=== PATIENT | male | born 1950 | race Caucasian/White ===

== ENCOUNTER 2016-03-27 17:08 | Inpatient (IN) ==
[2016-03-27] MEDS ORDERED: TIROFIBAN 5,000 MCG/100 ML PREMIX IV SCH (17:34)
[2016-03-27 18:05] LABS: Basophils # 0.1 10*3/uL (0.0-0.2); Basophils % 0.8 % (0.0-0.8); Eosinophils # 0.2 10*3/uL (0.0-0.87); Eosinophils % 1.9 % (0.00-10.9); Hematocrit 35.1 VOL% (42.0-52.0); Hemoglobin 11.8 GM/DL (14.0-18.0); Immature Granulocytes % 0.3 %; Immature Granulocytes Absolute 0.04 #; Lymphocytes # 1.9 10*3/uL (1.4-4.0); Lymphocytes % 15.8 % (21.2-54.2); Mean Corpuscular HGB Conc 33.6 GM/DL (32-36); Mean Corpuscular Hemoglobin 31 PG (27-34); Mean Corpuscular Volume 91.2 FL (87-102); Mean Platelet Volume 11.1 FL (9.6-12.0); Monocytes # 0.9 10*3/uL (0.11-0.8); Monocytes % 7.4 % (1.7-12.7); Neutrophils # 8.7 10*3/uL (1.4-7.4); Neutrophils % 73.8 % (38.7-73.9); Platelet Count 191 10*3/uL (130-400); Red Blood Count 3.85 10*6/uL (3.8-5.5); White Blood Count 11.8 10*3/uL (4.5-13.71)
[2016-03-27 18:16] LABS: INR 1.1; PT Patient Result 11.2 SECS; Partial Thromboplastin Time 31.3 SECS (0-40)
[2016-03-27] MEDS ORDERED: ENOXAPARIN 60 MG/0.6 ML SYRINGE IV ONE (18:41)
[2016-03-27] MEDS ORDERED: MIDAZOLAM 2 MG/2 ML VIAL IV ONE (18:41)
[2016-03-27] MEDS ORDERED: LIDOCAINE 1% 20 ML VIAL MISC INJ ONE (18:41)
[2016-03-27] MEDS ORDERED: PRASUGREL 10 MG TABLET PO ONE (18:41)
[2016-03-27] MEDS ORDERED: ASPIRIN 325 MG TABLET PO ONE (18:41)
[2016-03-27] MEDS ORDERED: TIROFIBAN 5,000 MCG/100 ML PREMIX IV ONE (18:41)
[2016-03-27] MEDS ORDERED: HYDROmorphone 2 MG/1 ML VIAL IV ONE ×2 (18:41→21:34)
[2016-03-27] MEDS ORDERED: HEPARIN/NACL 0.9% 2 UNITS/ML 500 ML IV ONE (18:41)
[2016-03-27 18:44] LABS: CKMB % 4.5 %; Osmolality,Calculated 286.3 MOS/KG (273-304); Potassium 4.6 MMOL/L (3.5-5.1)
--- NOTE | 2016-03-27 18:45 | Cardiac Catheterization ---
Date of Procedure:: 03/27/16 Post-op diagnosis: same Procedure: Procedure performed: 1. Left heart catheterization 2. Coronary angiography 3. Left ventricular enlargement 4. Bypass graft evaluation of to 5. Temporary pacemaker placed in RV from right femoral vein access 6. Primary stenting of ostial vein graft in-stent occlusion with drug-eluting stent (4.0 x 20 Synergy) 7. Abdominal aortogram 8. Left femoral arteriotomy closures with Angio-Seal device Brief summary: Mr. ansari blindness 65-year-old CABG in 1999, ostial vein graft to RCA stenting April 2013, now with acute inferior myocardial infarction high-grade AV block intermittently. Description of procedure: The patient was transferred emergently to the [employer] directly from the ambulance and I placed a short sheath in the right femoral vein. Access the right femoral artery but could not advance the wire presumably due to PAD. Subsequent angiogram later showed that there was not significant PAD in the right system. I then placed a short 6 [place] sheath in the left femoral artery using a modified Seldinger technique, after The patient received IV sedation and local anesthetic. Next a multipurpose 1 guiding catheter was advancing engaged the right coronary vein graft which fit the vessel well. The patient was given an aspirin to chew up, as well as 0.5 milligrams per kilogram IV Lovenox on the table just prior to procedure. I advanced a balloon tipped guided temporary pacing wire into the RV apex without difficulty. Later was hooked up on the patient developed some dizziness and bradycardia. Capture was confirmed and the rate was set at 50. Aggrastat bolus and infusion were also started. A Prowater wire was advanced across the ostial stent occlusion with modest difficulty. Then advanced a 3.0 balloon and performed nominal pressure angioplasty which achieve KORY-3 flow. There was greater than 60% residual stenosis. The balloon was removed and a 4.0 x 20 Synergy stem was advanced across area of disease hanging 2-3 mm in the ostium of the aorta. He was deployed at just above nominal pressures. The stent was clearly not oversize and so I redilated to rated burst pressure. I advanced the balloon several millimeters to dilate the "overlap" segment with the previous stent had about 9-10 remigio. Finally I "flared" the ostial portion of the stent at above rated burst pressure. There was an excellent angiographic result. The patient's chest discomfort resolved after initial angioplasty. The guiding catheter was then removed, and a JL4 was engaged to the left coronary artery were angina was performed. This was then removed over a wire ( long exchange wire due to difficulty crossing the left iliac. A JR4 catheter was advancing engaged to the right coronary artery and goes performed. This was then removed over an exchange wire for a OSEGUERA catheter which was medically into the left subclavian and Androderm of the OSEGUERA graft was performed. This is removed over a wire. A bent pigtail catheter was advanced the left ventricle were hemodynamic measurements were taken left ventriculography was performed. This is then pulled of the abdominal aorta were abdominal aortogram was performed given suspicion of significant PAD, and previous record of AAA (3 cm?). This was then removed and a sheath of the antrum showed was inserted in the common femoral artery in a vessel suitable for closure. Hemostasis was obtained with Angio-Seal device with no residual bleeding. He is transferred to the ICU in good condition. Coronary angiography: Left main coronary artery has mild disease. Left anterior descending artery has diffuse severe proximal to mid disease of greater than 90% with competitive flow noted distally from the OSEGUERA graft. The circumflex is occluded proximally. The right coronary artery is occluded just after the takeoff of the acute marginal (high mid RCA occlusion) the OSEGUERA to LAD is widely patent with normal flow with a somewhat diminutive distal vessel which doesn't quite reach the apex. The vein graft to the RCA is occluded at the ostium at the site of the proximal portion of the previously placed stent. After opening occlusion the vein graft to the RCA fills the circumflex by right to left collaterals. Left ventriculography: The left ventricle is modestly enlarged with mildly reduced overall LV systolic function. There is a large area of moderate inferior hypokinesis. Overall ejection fraction estimated to be 40%. Abdominal aortogram: The abdominal aorta appears to be mild to moderately dilated with only mild disease diffusely in both iliac systems, with no significant disease to the knee bilaterally. Impression: 1. Mildly reduced LV systolic function with large area of moderate inferior hypokinesis; he has been ejection fraction is 40% overall 2. Right dominant system 3. Sinus bradycardia with intermittent high-grade AV block, with placement of temporary pacemaker from right femoral vein to right ventricular apex 4. Three-vessel CAD as described above including but not limited to: A. Diffuse greater than 95% proximal to mid LAD disease, with distal vessel filling by OSEGUERA to LAD graft B. Proximal circumflex occlusion, distal vasculature filling by the the vein graft to the RCA by right to left collaterals C. High mid RCA occlusion 5. Grafts: A. OSEGUERA to LAD is widely patent with normal flow B. Vein graft to RCA has proximal in-stent occlusion C. Other vein graft previously noted to be occluded. 6. Status post primary stenting of ostial vein graft to RCA with a 4.0 x 20 Synergy drug eluding stent dilated to rated burst pressure with excellent result and yarsani of KORY-3 flow Regulation discussion: I believe we achieved an excellent result regard to opening the in-stent occlusion of his proximal vein graft RCA which was filling his circumflex vessel by collaterals. He'll continue on Effient, and will finish a bag of Aggrastat while he is observed in the CCU. He'll get low-dose beta tayla as tolerated. I will start high-intensity statin therapy. Of note his previous stent was a 3.5 x 12 mm Al[place], and the stent did not quite cover the ostium. Of note the patient had a reasonable sized OM1 branch April 2013 which is now occluded. This is a potential target for intervention if appropriate. We will plan follow-up with Dr. Leo after discharge. Anesthesia: minimal conscious sedation Surgeon / Physician: Kamran Mcbride Flux Plant Operator: other Estimated blood loss: none Specimens: none sent Condition: stable Disposition: ICU/CCU Anesthesia: minimal conscious sedation Surgeon / Physician: Kamran Mcbride Flux Plant Operator: other Estimated blood loss: minimal Specimens: none sent Condition: stable Disposition: ICU/CCU - Medications / Follow-up
[2016-03-27] MEDS ORDERED: ONDANSETRON 4 MG/2 ML VIAL ONE (18:48)
--- NOTE | 2016-03-27 18:48 | Cardiology History & Physical ---
Assessment and Plan (1) Insulin dependent diabetes mellitus Status: Chronic Assessment and plan: 1. 65-year-old obese WM former smoker with reported IDDM, hypertension, dyslipidemia, CAD status post CABG in 1999, status post stenting of proximal vein graft RCA April 2013, status post cholecystectomy and ERCP 3 weeks ago, who now presents with throat discomfort starting about 1030 a.m., and eventual brief syncope versus presyncope, diagnosed by EMS with acute inferior [place] 2. Sinus bradycardia with intermediate and high-grade AV block noted on initial tracings 3. Taken urgently to the radiographer cardiac catheterization for coronary angiography and intervention 4. Follow Dr. Leo, but has not seen him in over 6 months Addendum: I primarily stented his occluded stent at the ostium of his vein graft RCA successfully and placed temporary pacemaker in his RV. See report. Current Visit: No (2) Hx of CABG Status: Chronic Current Visit: No (3) Hypertension Status: Chronic Current Visit: No (4) CAD (coronary artery disease) Status: Chronic Current Visit: No (5) AVB (atrioventricular block) Status: Acute Current Visit: No History of Present Illness Chief complaint: cp History of present illness: Note: This H&P was initially entered under the wrong admission (foreign late January). Please see that note for further details. I will under the assessment and plan. Home Medications Medication Instructions Recorded Confirmed Type Aspirin [Ecotrin] 81 mg PO DAILY 02/22/16 02/22/16 History Carvedilol [Coreg] 3.125 mg PO BID 02/22/16 02/22/16 History Cyanocobalamin Tab [Vitamin B12 1,000 mcg PO DAILY 02/22/16 02/22/16 History Tab] Hum Insulin NPH/Reg Insulin Hm 52 unit SUBCUT QPM 02/22/16 02/22/16 History [NovoLIN 70/30] Hum Insulin NPH/Reg Insulin Hm 90 unit SUBCUT QAM 02/22/16 02/22/16 History [NovoLIN 70/30] Lisinopril/Hydrochlorothiazide 1 each PO DAILY 02/22/16 02/22/16 History [Lisinopril-Hctz 10-12.5 mg Tab] Magnesium Oxide 420 mg PO DAILY 02/22/16 02/22/16 History Montelukast Tab [Singulair Tab] 10 mg PO DAILY 02/22/16 02/22/16 History Omeprazole [Prilosec] 20 mg PO DAILY 02/22/16 02/22/16 History Pravastatin [Pravachol] 80 mg PO DAILY 02/22/16 02/22/16 History Probenecid [Benemid] 500 mg PO BID 02/22/16 02/22/16 History Acetaminophen Tab [Tylenol Tab] 325 mg PO Q4H PRN #0 tablet 02/28/16 Rx Alum/Mag/Simeth Max Str Liquid 30 ml PO Q6H PRN #0 udcup 02/28/16 Rx [Mylanta Max Strength Liquid] Carvedilol [Coreg] 3.125 mg PO BID tablet 02/28/16 Rx HYDROcodone/ACETAMIN 7.5-325 1 tablet PO Q4H PRN #40 tablet 02/28/16 Rx [[place] 7.5-325] Allergies Allergy/AdvReac Type Severity Reaction Status Date / Time levofloxacin [From Levaquin] AdvReac RASH Verified 02/23/16 17:22 Medical,Surgical,& Family Hx - Medical History Cardio: History of: CAD, Hypertension, [place] Neurology: History of: Migraine HEENT: History of: Ear Problem Endocrine: History of: Diabetes Mellitus (IDDM), Diabetes Mellitus (NIDDM) Rheumatology: History of;: Gout Respiratory: History of: Obstructive Sleep Apnea, Respiratory Problems (CHRONIC SOB ON EXERTION) Gastrointestinal: History of: GERD Musculoskeletal: History of: Back/Neck Problems - Surgical History Cardiac Surgeries: Sugical HX of: Cardiac Catheterization (WITH STENTS), Cardiac Surgery (CABG) Reproductive Surgeries: Surgical HX of;: Vasectomy - Family History Family History: Reports;: Family Diabetes, Family Heart Disease - Social History Smoking Status: Former smoker Cardiology Physical Exam - Constitutional Vitals: Intake and Output 03/27/16 03/27/16 03/27/16 07:59 15:59 23:59 Other: Weight 136.078 kg Patient Weight 03/27/16 23:59 Weight 136.078 kg General appearance: severe distress, over weight - Head Head exam: Present: normal inspection, atraumatic - Cardiovascular Cardiovascular exam: Present: bradycardia - Extremities Exam Extremities exam: Absent: edema Result/EKG - Labs CBC & BMP: 03/27/16 17:57 Labs: Laboratory Results - last 24 hr 03/27/16 03/27/16 17:57 17:57 WBC 11.8 RBC 3.85 Hgb 11.8 L Hct 35.1 L MCV 91.2 MCH 31 MCHC 33.6 RDW 14.0 Plt Count 191 MPV 11.1 Neut % (Auto) 73.8 Lymph % (Auto) 15.8 L [place] % (Auto) 7.4 Eos % (Auto) 1.9 Baso % (Auto) 0.8 Neut # (Auto) 8.7 H Lymph # (Auto) 1.9 [place] # (Auto) 0.9 H Eos # (Auto) 0.2 Baso # (Auto) 0.1 Immature Gran % 0.3 Nucleated RBC % 0.0 Immature Gran # 0.04 Nucleated RBCs # 0.00 INR 1.1 PT Patient/Control Mix 11.2 Circ Anticoag PTT 31.3
[2016-03-27 19:06] LABS: Troponin I Only 3.93 NG/ML (0.00-0.045)
[2016-03-27] MEDS ORDERED: ZALEPLON 5 MG CAPSULE PO PRN (20:39)
[2016-03-27] MEDS ORDERED: GLUCAGON 1 MG VIAL IM PRN (20:39)
[2016-03-27] MEDS ORDERED: DEXTROSE 50% 25 GM/50 ML VIAL IV PRN (20:39)
[2016-03-27] MEDS ORDERED: ONDANSETRON 4 MG/2 ML VIAL IV PRN (20:39)
[2016-03-27] MEDS ORDERED: SODIUM CHLORIDE 0.45% 1,000 ML IV SCH (21:00)
[2016-03-27] MEDS: PROMETHAZINE INJ 12.5 MG in SODIUM CHLORIDE 0.9% 50 ML IV PRN (21:30)
[2016-03-27] MEDS: CARVEDILOL 3.125 MG TABLET PO SCH (21:53)
[2016-03-27] MEDS: ATORVASTATIN 80 MG TABLET PO SCH (21:53)
[2016-03-27] MEDS: INSULIN REGULAR 100 UNIT/ML SUBCUT SCH (21:54)
[2016-03-27 23:54] LABS: CKMB % 9.1 %
[2016-03-27 23:55] LABS: Troponin I Only 48.7 NG/ML (0.00-0.045)
[2016-03-28] MEDS: PROMETHAZINE INJ 12.5 MG in SODIUM CHLORIDE 0.9% 50 ML IV PRN (04:30)
[2016-03-28 06:52] LABS: Basophils # 0.1 10*3/uL (0.0-0.2); Basophils % 0.5 % (0.0-0.8); Eosinophils % 0.1 % (0.00-10.9); Hematocrit 39.7 VOL% (42.0-52.0); Hemoglobin 12.9 GM/DL (14.0-18.0); Immature Granulocytes % 0.5 %; Immature Granulocytes Absolute 0.06 #; Lymphocytes # 1.2 10*3/uL (1.4-4.0); Lymphocytes % 10.5 % (21.2-54.2); Mean Corpuscular HGB Conc 32.5 GM/DL (32-36); Mean Corpuscular Hemoglobin 30 PG (27-34); Mean Corpuscular Volume 93.2 FL (87-102); Mean Platelet Volume 10.5 FL (9.6-12.0); Monocytes # 0.9 10*3/uL (0.11-0.8); Monocytes % 7.2 % (1.7-12.7); Neutrophils # 9.5 10*3/uL (1.4-7.4); Neutrophils % 81.2 % (38.7-73.9); Platelet Count 183 10*3/uL (130-400); Red Blood Count 4.26 10*6/uL (3.8-5.5); Red Cell Distribution Width 14.5 % (9.3-17.3); White Blood Count 11.7 10*3/uL (4.5-13.71)
[2016-03-28 07:38] LABS: Calcium 8.3 MG/DL (8.5-10.1); Osmolality,Calculated 289.1 MOS/KG (273-304); Potassium 4.9 MMOL/L (3.5-5.1)
[2016-03-28 07:40] LABS: Troponin I Only 96.8 NG/ML (0.00-0.045)
--- NOTE | 2016-03-28 08:12 | EKG Report ---
Stationary ECG Study [facility] Test Date: 03/28/2016 8:09:53 AM Pat Name: KARINA MARS Department: Room: 124 Gender: M Financial Associate: MIGUEL : 1950 Requested by: Kamran Trevizo Order Number: [id number] Sukhdev MD: CRYSTAL MOROCHO Intervals [place] Rate: 60 P: 27 GA: 241 QRS: 24 QRSD: 99 T: 38 QT: 405 QTc: 407 Interpretive Statements SINUS RHYTHM WITH PROLONGED GA INTERVAL INFERIOR MYOCARDIAL INFARCTION POSSIBLE ACUTE LOW VOLTAGE TRACING Electronically Signed On 03-29-16 11:13:39 OBSTETRICS GYN by CRYSTAL MOROCHO [id number]
[2016-03-28] MEDS: PANTOPRAZOLE 40 MG TABLET PO SCH ×3 (08:14→21:22)
[2016-03-28] MEDS ORDERED: ALUMINUM/MAGNES/SIMETH MAX STR 30 ML UDCUP PO PRN (08:19)
--- NOTE | 2016-03-28 08:37 | Cardiology Progress Note ---
Assessment and Plan (1) Insulin dependent diabetes mellitus Status: Chronic Assessment and plan: 1. 65-year-old obese WM former smoker with reported IDDM, hypertension, dyslipidemia, CAD status post CABG in 1999, status post stenting of proximal vein graft RCA April 2013, status post cholecystectomy and ERCP 3 weeks ago, who now presents with throat discomfort starting about 1030 a.m., and eventual brief syncope versus presyncope, diagnosed by EMS with acute inferior [place] 2. Sinus bradycardia with intermediate and high-grade AV block noted on initial tracings 3. Taken urgently to the forestry laborer for coronary angiography and intervention 4. Follow Dr. Leo, but has not seen him in over 6 months Addendum: I primarily stented his occluded stent at the ostium of his vein graft RCA successfully and placed temporary pacemaker in his RV. See report. March 28 update: 1. Mr. Abdul is doing well status post inferior FL with stenting of vein graft to RCA, which also supplied the circumflex system through right to left collaterals 2. He appeared to have normal ejection fraction April 2013, at catheterization when his vein graft was first stented, now has EF approximate 40 % with significant inferior hypokinesis 3. I pulled his temporary right ventricle pacemaker (from right venous sheath) , as he has had no further AV block or significant bradycardia 4. Tolerating low-dose Coreg/beta tayla 5. Add low-dose NOLVIA inhibitor 6. Plan to transfer to the telemetry floor at midday if he has no further problems; he can ambulate, but need to avoid falls 7. We need to obtain accurate home medicine list, will give sliding scale insulin for the time being (IDDM) 8. LEÓN; will try to get his CPAP set up to use in the hospital 9. Recommend cardiac rehabilitation after discharge 10. Resolved headache and nausea which were fairly significant yesterday evening late 11. Both groin access sites without bleeding or hematoma 12. Reports she's having his usual GERD; given Maalox times one and continue Protonix 13 appears he is probably on pravastatin to home, would probably benefit from a higher intensity statin such as Lipitor Current Visit: No (2) Hx of CABG Status: Chronic Current Visit: No (3) Hypertension Status: Chronic Current Visit: No (4) CAD (coronary artery disease) Status: Chronic Current Visit: No (5) AVB (atrioventricular block) Status: Acute Current Visit: No Cardiology - PN: Subj Interval history: Mr. Abdul has had no more chest discomfort and denies shortness of breath. He complains of some acid reflux which is common for him "maintaining its messed up ". He has had no dysrhythmia during the night. He's had no complications at his access sites. He does not have abdominal discomfort. His headache which she had yesterday evening has resolved. He had nausea during the night which is now significantly better. Exam (Progress Note) - Constitutional Vitals: Period Temp Pulse Resp BP Sys/Islas Pulse Ox Last 24 Hr 96.3 F-97.2 F 57-78 11-20 109-175/68-114 91-99 General appearance: no acute distress, over weight - Head Head exam: Present: normal inspection, normocephalic, atraumatic - Neck Neck exam: Present: normal inspection - Respiratory Respiratory exam: Present: clear to auscultation bilaterally. Absent: stridor, wheezes - Cardiovascular Cardiovascular exam: Present: regular rate and rhythm. Absent: diastolic murmur , rubs - GI/Abdominal GI/Abdominal exam: Present: soft. Absent: tenderness - Extremities Exam Extremities exam: Present: other (no bruit, bleeding, or hematoma is right or left access sites ). Absent: edema Result/EKG - Labs CBC & BMP: 03/28/16 06:44 03/28/16 06:44 Labs: Laboratory Results - last 24 hr 03/27/16 03/27/16 03/27/16 17:57 17:57 17:57 WBC 11.8 RBC 3.85 Hgb 11.8 L Hct 35.1 L MCV 91.2 MCH 31 MCHC 33.6 RDW 14.0 Plt Count 191 MPV 11.1 Neut % (Auto) 73.8 Lymph % (Auto) 15.8 L [place] % (Auto) 7.4 Eos % (Auto) 1.9 Baso % (Auto) 0.8 Neut # (Auto) 8.7 H Lymph # (Auto) 1.9 [place] # (Auto) 0.9 H Eos # (Auto) 0.2 Baso # (Auto) 0.1 Immature Gran % 0.3 Nucleated RBC % 0.0 Immature Gran # 0.04 Nucleated RBCs # 0.00 INR 1.1 PT Patient/Control Mix 11.2 Circ Anticoag PTT 31.3 Sodium 141 Potassium 4.6 Chloride 109 H Carbon Dioxide 24 Anion Gap 12.6 BUN 28 H Creatinine 1.50 H GFR Calculation 66 BUN/Creatinine Ratio 18.00 Glucose 103 POC Glucose Calculated Osmolality 286.3 Calcium 8.0 L Total Creatine Kinase 470 H CK-MB (CK-2) 21.3 H CK and CKMB Interp 4.5 Troponin I 3.930 H 03/27/16 03/27/16 03/28/16 21:50 22:03 06:44 WBC 11.7 RBC 4.26 Hgb 12.9 L Hct 39.7 L MCV 93.2 MCH 30 MCHC 32.5 RDW 14.5 Plt Count 183 MPV 10.5 Neut % (Auto) 81.2 H Lymph % (Auto) 10.5 L [place] % (Auto) 7.2 Eos % (Auto) 0.1 Baso % (Auto) 0.5 Neut # (Auto) 9.5 H Lymph # (Auto) 1.2 L [place] # (Auto) 0.9 H Eos # (Auto) 0.0 Baso # (Auto) 0.1 Immature Gran % 0.5 Nucleated RBC % 0.0 Immature Gran # 0.06 Nucleated RBCs # 0.00 INR PT Patient/Control Mix Circ Anticoag PTT Sodium Potassium Chloride Carbon Dioxide Anion Gap BUN Creatinine GFR Calculation BUN/Creatinine Ratio Glucose POC Glucose 126 H Calculated Osmolality Calcium Total Creatine Kinase 1666 H D CK-MB (CK-2) 150.9 H D CK and CKMB Interp 9.1 Troponin I 48.700 H D 03/28/16 03/28/16 06:44 07:17 WBC RBC Hgb Hct MCV MCH MCHC RDW Plt Count MPV Neut % (Auto) Lymph % (Auto) [place] % (Auto) Eos % (Auto) Baso % (Auto) Neut # (Auto) Lymph # (Auto) [place] # (Auto) Eos # (Auto) Baso # (Auto) Immature Gran % Nucleated RBC % Immature Gran # Nucleated RBCs # INR PT Patient/Control Mix Circ Anticoag PTT Sodium 142 Potassium 4.9 Chloride 108 H Carbon Dioxide 26 Anion Gap 12.9 BUN 27 H Creatinine 1.40 H GFR Calculation 72 BUN/Creatinine Ratio 19.00 Glucose 139 H POC Glucose 148 H Calculated Osmolality 289.1 Calcium 8.3 L Total Creatine Kinase 2066 H D CK-MB (CK-2) 206.6 H D CK and CKMB Interp 10.0 Troponin I 96.800 H D Specialty Discharge - Follow Up or Referrals - Discharge Medications No Action Lisinopril/Hydrochlorothiazide [Lisinopril-Hctz 10-12.5 mg Tab] 1 each PO DAILY Probenecid [Benemid] 500 mg PO BID Omeprazole [Prilosec] 20 mg PO DAILY Montelukast Tab [Singulair Tab] 10 mg PO DAILY Cyanocobalamin Tab [Vitamin B12 Tab] 1,000 mcg PO DAILY Pravastatin [Pravachol] 80 mg PO DAILY Hum Insulin NPH/Reg Insulin Hm [NovoLIN 70/30] 90 unit SUBCUT QAM Hum Insulin NPH/Reg Insulin Hm [NovoLIN 70/30] 52 unit SUBCUT QPM Aspirin [Ecotrin] 81 mg PO DAILY Magnesium Oxide 420 mg PO DAILY Acetaminophen Tab [Tylenol Tab] 325 mg PO Q4H PRN #0 tablet PRN Reason: fever, headache/body aches Alum/Mag/Simeth Max Str Liquid [Mylanta Max Strength Liquid] 30 ml PO Q6H PRN #0 udcup PRN Reason: Dyspepsia Carvedilol [Coreg] 3.125 mg PO BID tablet HYDROcodone/ACETAMIN 7.5-325 [[place] 7.5-325] 1 tablet PO Q4H PRN #40 tablet PRN Reason: Pain Moderate (4-7)
[2016-03-28] MEDS: INSULIN REGULAR 100 UNIT/ML SUBCUT SCH ×4 (09:44→21:22)
[2016-03-28] MEDS: INSULIN NPH/REGULAR 70/30 100 UNIT/ML SUBCUT SCH ×2 (09:50→18:03)
[2016-03-28] MEDS: ACETAMINOPHEN 325 MG TABLET PO PRN ×3 (09:51→21:22)
[2016-03-28] MEDS: CARVEDILOL 3.125 MG TABLET PO SCH ×2 (09:52→21:22)
[2016-03-28] MEDS: PRASUGREL 10 MG TABLET PO SCH (09:52)
[2016-03-28] MEDS: ASPIRIN EC 81 MG TABLET PO SCH (09:52)
[2016-03-28] MEDS: LISINOPRIL 5 MG TABLET PO SCH ×2 (09:52→21:22)
[2016-03-28] MEDS: ATORVASTATIN 80 MG TABLET PO SCH (21:22)
[2016-03-29 05:48] LABS: Basophils # 0.1 10*3/uL (0.0-0.2); Basophils % 0.7 % (0.0-0.8); Eosinophils # 0.3 10*3/uL (0.0-0.87); Eosinophils % 2.9 % (0.00-10.9); Hemoglobin 12.2 GM/DL (14.0-18.0); Immature Granulocytes % 0.4 %; Immature Granulocytes Absolute 0.04 #; Lymphocytes # 1.7 10*3/uL (1.4-4.0); Lymphocytes % 16.1 % (21.2-54.2); Mean Corpuscular HGB Conc 32.1 GM/DL (32-36); Mean Corpuscular Hemoglobin 30 PG (27-34); Mean Corpuscular Volume 92.2 FL (87-102); Mean Platelet Volume 11.2 FL (9.6-12.0); Monocytes # 0.9 10*3/uL (0.11-0.8); Monocytes % 8.8 % (1.7-12.7); Neutrophils # 7.6 10*3/uL (1.4-7.4); Neutrophils % 71.1 % (38.7-73.9); Platelet Count 176 10*3/uL (130-400); Red Blood Count 4.12 10*6/uL (3.8-5.5); Red Cell Distribution Width 14.3 % (9.3-17.3); White Blood Count 10.7 10*3/uL (4.5-13.71)
[2016-03-29 06:44] LABS: Calcium 8.4 MG/DL (8.5-10.1); Magnesium 2.1 MG/DL (1.8-2.4); Osmolality,Calculated 290.7 MOS/KG (273-304); Potassium 4.1 MMOL/L (3.5-5.1)
--- NOTE | 2016-03-29 08:30 | EKG Report ---
Stationary ECG Study [facility] Test Date: 03/29/2016 8:28:09 AM Pat Name: KARINA MARS Department: Room: 265 Gender: M Building Drafting Officer: ROXANNE : 1950 Requested by: Kamran Trevizo Order Number: [id number] Sukhdev MD: CRYSTAL MOROCHO Intervals [place] Rate: 67 P: 81 AL: 236 QRS: -16 QRSD: 104 T: -58 QT: 410 QTc: 426 Interpretive Statements SINUS RHYTHM WITH PROLONGED AL INTERVAL INFERIOR MYOCARDIAL INFARCTION, RECENT Electronically Signed On 03-29-16 11:32:32 COLLECTIONS AND ARCHIVES DIRECTOR by CRYSTAL MOROCHO [id number]
[2016-03-29] MEDS: INSULIN REGULAR 100 UNIT/ML SUBCUT SCH ×4 (08:36→21:06)
[2016-03-29] MEDS: ASPIRIN EC 81 MG TABLET PO SCH (08:36)
[2016-03-29] MEDS: INSULIN NPH/REGULAR 70/30 100 UNIT/ML SUBCUT SCH ×2 (08:36→18:16)
[2016-03-29] MEDS: CARVEDILOL 3.125 MG TABLET PO SCH ×2 (08:37→21:05)
[2016-03-29] MEDS: PRASUGREL 10 MG TABLET PO SCH (08:37)
[2016-03-29] MEDS: PANTOPRAZOLE 40 MG TABLET PO SCH ×4 (08:37→21:06)
[2016-03-29] MEDS: LISINOPRIL 5 MG TABLET PO SCH ×2 (08:37→21:05)
--- NOTE | 2016-03-29 09:55 | Cardiology Progress Note ---
Assessment and Plan (1) Insulin dependent diabetes mellitus Status: Chronic Assessment and plan: 1. 65-year-old obese WM former smoker with reported IDDM, hypertension, dyslipidemia, CAD status post CABG in 1999, status post stenting of proximal vein graft RCA April 2013, status post cholecystectomy and ERCP 3 weeks ago, who now presents with throat discomfort starting about 1030 a.m., and eventual brief syncope versus presyncope, diagnosed by EMS with acute inferior [place] 2. Sinus bradycardia with intermediate and high-grade AV block noted on initial tracings 3. Taken urgently to the hoisting laborer for coronary angiography and intervention 4. Follow Dr. Leo, but has not seen him in over 6 months Addendum: I primarily stented his occluded stent at the ostium of his vein graft RCA successfully and placed temporary pacemaker in his RV. See report. March 28 update: 1. Mr. Abdul is doing well status post inferior DC with stenting of vein graft to RCA, which also supplied the circumflex system through right to left collaterals 2. He appeared to have normal ejection fraction April 2013, at catheterization when his vein graft was first stented, now has EF approximate 40 % with significant inferior hypokinesis 3. I pulled his temporary right ventricle pacemaker (from right venous sheath) , as he has had no further AV block or significant bradycardia 4. Tolerating low-dose Coreg/beta tayla 5. Add low-dose NOLVIA inhibitor 6. Plan to transfer to the telemetry floor at midday if he has no further problems; he can ambulate, but need to avoid falls 7. We need to obtain accurate home medicine list, will give sliding scale insulin for the time being (IDDM) 8. LEÓN; will try to get his CPAP set up to use in the hospital 9. Recommend cardiac rehabilitation after discharge 10. Resolved headache and nausea which were fairly significant yesterday evening late 11. Both groin access sites without bleeding or hematoma 12. Reports she's having his usual GERD; given Maalox times one and continue Protonix 13 appears he is probably on pravastatin to home, would probably benefit from a higher intensity statin such as Lipitor March 29 update: 1. Slowly improving clinically now ambulating in the room; recommend the ambulate in the hallway, but to avoid falls with assistance of needed 2. Status post inferior [place] with restenting of vein graft RCA with good result 3. Using CPAP in the hospital now 4. Headache and nausea did not returned 5. GERD is now controlled on twice a day PPI 6. LV function is now mildly reduced status post DC with inferior hypokinesis; as spironolactone 25 mg per day to his low-dose Coreg and NOLVIA inhibitor 7. No return of significant bradycardia or high-grade block since coronary intervention 8. Likely can be discharged the next day or 2; he follows up with Dr. Willam Leo Current Visit: No (2) Hx of CABG Status: Chronic Current Visit: No (3) Hypertension Status: Chronic Current Visit: No (4) CAD (coronary artery disease) Status: Chronic Current Visit: No (5) AVB (atrioventricular block) Status: Acute Current Visit: No Cardiology - PN: Subj Interval history: Mr. Grant Chou is getting up some in the room but still feels fairly weak. He is not had presyncope syncope or palpitations. He does have a little dyspnea on exertion. He has mild soreness at his access site in his groin. Exam (Progress Note) - Constitutional Vitals: Period Temp Pulse Resp BP Sys/Islas Pulse Ox Last 24 Hr 96.8 F-98.6 F 57-86 16-20 111-146/57-86 94-99 General appearance: no acute distress, over weight - Head Head exam: Present: normal inspection, normocephalic, atraumatic - Neck Neck exam: Present: normal inspection - Respiratory Respiratory exam: Present: rales. Absent: rhonchi, stridor, wheezes - Cardiovascular Cardiovascular exam: Present: regular rate and rhythm. Absent: diastolic murmur , rubs - GI/Abdominal GI/Abdominal exam: Present: soft. Absent: tenderness - Extremities Exam Extremities exam: Present: edema (minimal), other (bilateral groin access sites without bruit hematoma or bleeding; there is some modest ecchymosis on the right ) - Neurological Exam Neurological exam: Present: alert, oriented X3 Result/EKG - Labs CBC & BMP: 03/29/16 04:41 03/29/16 04:41 Labs: Laboratory Results - last 24 hr 03/28/16 03/28/16 03/28/16 11:03 16:26 21:26 WBC RBC Hgb Hct MCV MCH MCHC RDW Plt Count MPV Neut % (Auto) Lymph % (Auto) [place] % (Auto) Eos % (Auto) Baso % (Auto) Neut # (Auto) Lymph # (Auto) [place] # (Auto) Eos # (Auto) Baso # (Auto) Immature Gran % Nucleated RBC % Immature Gran # Nucleated RBCs # Sodium Potassium Chloride Carbon Dioxide Anion Gap BUN Creatinine GFR Calculation BUN/Creatinine Ratio Glucose POC Glucose 180 H 138 H 140 H Calculated Osmolality Calcium Magnesium 03/29/16 03/29/16 03/29/16 04:41 04:41 07:52 WBC 10.7 RBC 4.12 Hgb 12.2 L Hct 38.0 L MCV 92.2 MCH 30 MCHC 32.1 RDW 14.3 Plt Count 176 MPV 11.2 Neut % (Auto) 71.1 Lymph % (Auto) 16.1 L [place] % (Auto) 8.8 Eos % (Auto) 2.9 Baso % (Auto) 0.7 Neut # (Auto) 7.6 H Lymph # (Auto) 1.7 [place] # (Auto) 0.9 H Eos # (Auto) 0.3 Baso # (Auto) 0.1 Immature Gran % 0.4 Nucleated RBC % 0.0 Immature Gran # 0.04 Nucleated RBCs # 0.00 Sodium 145 Potassium 4.1 Chloride 109 H Carbon Dioxide 25 Anion Gap 15.1 H BUN 26 H Creatinine 1.30 GFR Calculation 78 BUN/Creatinine Ratio 20.00 Glucose 57 L POC Glucose 68 L Calculated Osmolality 290.7 Calcium 8.4 L Magnesium 2.1 Specialty Discharge - Follow Up or Referrals Follow up with: Lucien Leo MD [Physician] - 1 Week (1-2 weeks with CMP, CBC, EKG) - Discharge Medications No Action Lisinopril/Hydrochlorothiazide [Lisinopril-Hctz 10-12.5 mg Tab] 1 each PO DAILY Probenecid [Benemid] 500 mg PO BID Omeprazole [Prilosec] 20 mg PO BID Montelukast Tab [Singulair Tab] 10 mg PO DAILY Cyanocobalamin Tab [Vitamin B12 Tab] 1,000 mcg PO DAILY Pravastatin [Pravachol] 80 mg PO DAILY Hum Insulin NPH/Reg Insulin Hm [NovoLIN 70/30] 90 unit SUBCUT QAM Hum Insulin NPH/Reg Insulin Hm [NovoLIN 70/30] 52 unit SUBCUT QPM Aspirin [Ecotrin] 81 mg PO DAILY Magnesium Oxide 420 mg PO DAILY Acetaminophen Tab [Tylenol Tab] 325 mg PO Q4H PRN #0 tablet PRN Reason: fever, headache/body aches Alum/Mag/Simeth Max Str Liquid [Mylanta Max Strength Liquid] 30 ml PO Q6H PRN #0 udcup PRN Reason: Dyspepsia Carvedilol [Coreg] 3.125 mg PO BID tablet HYDROcodone/ACETAMIN 7.5-325 [[place] 7.5-325] 1 tablet PO Q4H PRN #40 tablet PRN Reason: Pain Moderate (4-7)
[2016-03-29] MEDS: SPIRONOLACTONE 25 MG TABLET PO SCH (10:16)
[2016-03-29] MEDS: ACETAMINOPHEN 325 MG TABLET PO PRN (14:44)
[2016-03-29] MEDS: ATORVASTATIN 80 MG TABLET PO SCH (21:06)
[2016-03-30] MEDS: PANTOPRAZOLE 40 MG TABLET PO SCH ×2 (07:35→09:00)
[2016-03-30] MEDS: INSULIN REGULAR 100 UNIT/ML SUBCUT SCH ×2 (08:10→12:25)
[2016-03-30] MEDS: INSULIN NPH/REGULAR 70/30 100 UNIT/ML SUBCUT SCH (08:58)
[2016-03-30] MEDS: SPIRONOLACTONE 25 MG TABLET PO SCH (08:59)
[2016-03-30] MEDS: ASPIRIN EC 81 MG TABLET PO SCH (08:59)
[2016-03-30] MEDS: CARVEDILOL 3.125 MG TABLET PO SCH (08:59)
[2016-03-30] MEDS: PRASUGREL 10 MG TABLET PO SCH (09:00)
[2016-03-30] MEDS: LISINOPRIL 5 MG TABLET PO SCH (09:00)
[2016-03-30 09:19] LABS: Basophils # 0.1 10*3/uL (0.0-0.2); Basophils % 0.7 % (0.0-0.8); Eosinophils # 0.5 10*3/uL (0.0-0.87); Eosinophils % 5.5 % (0.00-10.9); Hematocrit 36.4 VOL% (42.0-52.0); Immature Granulocytes % 0.2 %; Immature Granulocytes Absolute 0.02 #; Lymphocytes # 1.3 10*3/uL (1.4-4.0); Lymphocytes % 15.5 % (21.2-54.2); Mean Corpuscular Hemoglobin 30 PG (27-34); Mean Corpuscular Volume 89.9 FL (87-102); Mean Platelet Volume 10.6 FL (9.6-12.0); Monocytes # 0.8 10*3/uL (0.11-0.8); Monocytes % 9.4 % (1.7-12.7); Neutrophils # 5.8 10*3/uL (1.4-7.4); Neutrophils % 68.7 % (38.7-73.9); Platelet Count 167 10*3/uL (130-400); Red Blood Count 4.05 10*6/uL (3.8-5.5); Red Cell Distribution Width 13.7 % (9.3-17.3); White Blood Count 8.5 10*3/uL (4.5-13.71)
[2016-03-30 09:47] LABS: Calcium 8.2 MG/DL (8.5-10.1); Magnesium 1.8 MG/DL (1.8-2.4); Osmolality,Calculated 285.4 MOS/KG (273-304); Potassium 4.2 MMOL/L (3.5-5.1)
--- NOTE | 2016-03-30 09:56 | Discharge Summary ---
<Kristy Floyd E - Last Filed: 03/30/16 09:42> Hospital Course - Hospital Course Hospital Course: Hospital course: ADMISSION INFORMATION: 1. 65-year-old obese WM former smoker with reported IDDM, hypertension, dyslipidemia, CAD status post CABG in 1999, status post stenting of proximal vein graft RCA April 2013, status post cholecystectomy and ERCP 3 weeks ago, who now presents with throat discomfort starting about 1030 a.m., and eventual brief syncope versus presyncope, diagnosed by EMS with acute inferior [place] 2. Sinus bradycardia with intermediate and high-grade AV block noted on initial tracings 3. Taken urgently to the union laborer for coronary angiography and intervention 4. Follow Dr. Leo, but has not seen him in over 6 months Addendum: I primarily stented his occluded stent at the ostium of his vein graft RCA successfully and placed temporary pacemaker in his RV. See report. March 28, 2016 update: 1. Mr. Abdul is doing well status post inferior [place] with stenting of vein graft to RCA, which also supplied the circumflex system through right to left collaterals 2. He appeared to have normal ejection fraction April 2013, at catheterization when his vein graft was first stented, now has EF approximate 40 % with significant inferior hypokinesis 3. I pulled his temporary right ventricle pacemaker (from right venous sheath) , as he has had no further AV block or significant bradycardia 4. Tolerating low-dose Coreg/beta tayla 5. Add low-dose NOLVIA inhibitor 6. Plan to transfer to the telemetry floor at midday if he has no further problems; he can ambulate, but need to avoid falls 7. We need to obtain accurate home medicine list, will give sliding scale insulin for the time being (IDDM) 8. LEÓN; will try to get his CPAP set up to use in the hospital 9. Recommend cardiac rehabilitation after discharge 10. Resolved headache and nausea which were fairly significant yesterday evening late 11. Both groin access sites without bleeding or hematoma 12. Reports she's having his usual GERD; given Maalox times one and continue Protonix 13 appears he is probably on pravastatin to home, would probably benefit from a higher intensity statin such as Lipitor March 29, 2016 update: 1. Slowly improving clinically now ambulating in the room; recommend the ambulate in the hallway, but to avoid falls with assistance of needed 2. Status post inferior [place] with restenting of vein graft RCA with good result 3. Using CPAP in the hospital now 4. Headache and nausea did not returned 5. GERD is now controlled on twice a day PPI 6. LV function is now mildly reduced status post [place] with inferior hypokinesis; as spironolactone 25 mg per day to his low-dose Coreg and NOLVIA inhibitor 7. No return of significant bradycardia or high-grade block since coronary intervention March 30, 2016 update: 1. Status post inferior [place] with stenting of vein graft to RCA, which also scribe the circumflex system through the right to left collaterals. He is doing well. He has been ambulating throughout the telemetry unit and he is anxious for discharge home. He denies chest pain, heaviness, tightness. 2. Cardiomyopathy, Ischemic - EF favorite 2013 revealed a normal ejection fraction. At catheterization this admission, EF approximately 40% with significant inferior hypokinesis. Tolerating aspirin, lipid-lowering agent, beta tayla and NOLVIA inhibitor date. Spironolactone initiated yesterday. Will be followed outpatient with repeat echo and continued medical management. 3. Hypertension - continue current plan of care. Appears to be well controlled at this time. 4. Dyslipidemia - Atorvastatin maximized yesterday. 5. Bradycardia - required temporary pacemaker for high-grade block post PCI. No return of significant bradycardia noted. 6. LEÓN - requires, and uses, sleep apnea device. 7. DM - well controlled. At this time, patient is stable for discharge home. He is been walking without difficulty and is anxious for release home. He is on appropriate medication regimen. He will be given a follow-up appointment with Dr. Leo in approximately 1 week. At that visit, the following labs will be obtained: BMP, magnesium, CBC. EKG. Discussed importance of cardiac rehab and he is considering. Will verify he is contacted prior to discharge or, if personnel out because of holiday, will be contacted this week at home. - Time spent with patient Time with patient DS: Less than 30 minutes Diagnosis - Discharge Diagnosis (1) Dyslipidemia Status: Chronic (2) Sleep apnea Status: Chronic (3) Cardiomyopathy, ischemic Status: Chronic (4) Insulin dependent diabetes mellitus Status: Chronic (5) Hx of CABG Status: Chronic (6) Hypertension Status: Chronic (7) CAD (coronary artery disease) Status: Chronic (8) ST elevation (STEMI) myocardial infarction of unspecified site Status: Resolved (9) AVB (atrioventricular block) Status: Resolved Specialty Discharge - Follow Up or Referrals Follow up with: Lucien Leo MD [Physician] - 1 Week (1-2 weeks with CMP, CBC, EKG) - Discharge Medications New Lisinopril [Prinivil] 5 mg PO BID #60 tablet Atorvastatin [Lipitor] 80 mg PO BEDTIME #30 tablet Prasugrel [Effient] 10 mg PO DAILY #30 tablet Spironolactone [Aldactone] 25 mg PO DAILY #30 tablet Continue Probenecid [Benemid] 500 mg PO BID Omeprazole [Prilosec] 20 mg PO BID Montelukast Tab [Singulair Tab] 10 mg PO DAILY Cyanocobalamin Tab [Vitamin B12 Tab] 1,000 mcg PO DAILY Hum Insulin NPH/Reg Insulin Hm [NovoLIN 70/30] 90 unit SUBCUT QAM Hum Insulin NPH/Reg Insulin Hm [NovoLIN 70/30] 52 unit SUBCUT QPM Aspirin [Ecotrin] 81 mg PO DAILY Magnesium Oxide 420 mg PO DAILY Acetaminophen Tab [Tylenol Tab] 325 mg PO Q4H PRN #0 tablet PRN Reason: fever, headache/body aches Alum/Mag/Simeth Max Str Liquid [Mylanta Max Strength Liquid] 30 ml PO Q6H PRN #0 udcup PRN Reason: Dyspepsia Carvedilol [Coreg] 3.125 mg PO BID tablet HYDROcodone/ACETAMIN 7.5-325 [[place] 7.5-325] 1 tablet PO Q4H PRN #40 tablet PRN Reason: Pain Moderate (4-7) Discontinued Lisinopril/Hydrochlorothiazide [Lisinopril-Hctz 10-12.5 mg Tab] 1 each PO DAILY Pravastatin [Pravachol] 80 mg PO DAILY Discharge Plan - Discharge Data Disposition: Disch To Home/Self Care Condition at Discharge: Stable Discharge Diet: heart healthy Activity: other (post-cath expectations) Hygiene: other (post-cath expectations) Weight Bearing at Discharge: other (post-cath expectations) Driving: other (post-cath expectations) Contact your physician if you experience:: fever over 101, Difficulty voiding, Redness or swelling, Nausea/Vomiting, Shortness of breath, Bleeding, pain uncontrolled by pain medications - Discharge Medications New Lisinopril [Prinivil] 5 mg PO BID #60 tablet Atorvastatin [Lipitor] 80 mg PO BEDTIME #30 tablet Prasugrel [Effient] 10 mg PO DAILY #30 tablet Spironolactone [Aldactone] 25 mg PO DAILY #30 tablet Continue Probenecid [Benemid] 500 mg PO BID Omeprazole [Prilosec] 20 mg PO BID Montelukast Tab [Singulair Tab] 10 mg PO DAILY Cyanocobalamin Tab [Vitamin B12 Tab] 1,000 mcg PO DAILY Hum Insulin NPH/Reg Insulin Hm [NovoLIN 70/30] 90 unit SUBCUT QAM Hum Insulin NPH/Reg Insulin Hm [NovoLIN 70/30] 52 unit SUBCUT QPM Aspirin [Ecotrin] 81 mg PO DAILY Magnesium Oxide 420 mg PO DAILY Acetaminophen Tab [Tylenol Tab] 325 mg PO Q4H PRN #0 tablet PRN Reason: fever, headache/body aches Alum/Mag/Simeth Max Str Liquid [Mylanta Max Strength Liquid] 30 ml PO Q6H PRN #0 udcup PRN Reason: Dyspepsia Carvedilol [Coreg] 3.125 mg PO BID tablet HYDROcodone/ACETAMIN 7.5-325 [[place] 7.5-325] 1 tablet PO Q4H PRN #40 tablet PRN Reason: Pain Moderate (4-7) Discontinued Lisinopril/Hydrochlorothiazide [Lisinopril-Hctz 10-12.5 mg Tab] 1 each PO DAILY Pravastatin [Pravachol] 80 mg PO DAILY - Follow Up or Referral Follow Up: Lucien Leo MD [Physician] - 1 Week (1-2 weeks with CMP, CBC, EKG) - Forms/Instructions Additional Discharge Instructions: Please verify Cardiac rehab has contacted patient regarding cardiac rehab prior to discharge. If personnel off for the holiday, please give his contact info to rehab tomorrow. Thanks. Exam - Constitutional Vitals: Period Temp Pulse Resp BP Sys/Islas Pulse Ox Last 24 Hr 97.4 F-98.6 F 59-76 16-20 112-157/62-88 93-97 Exam: General: Appears well with no apparent distress. Pleasant and cooperative. Appears comfortable. HEENT: PERRL, normocephalic, atraumatic. Mucous membranes moist. No jaundice noted. Conjunctiva moist and clear, sclerae anicteric Neck: No JVD/HJR, no thyromegaly or lymphadenopathy noted. No carotid bruit appreciated Cardiac: Regular rate and rhythm. No obvious murmur rub or gallop. Lungs: Clear to auscultation without accessory muscle use to assist the respiratory pattern. No requiring oxygen. Abdomen: Soft, bowel sounds normoactive. Nontender and nondistended. No abdominal bruit or thrill noted. No masses noted. Musculoskeletal: No fluid collection. Decreased range of motion is noted. Extremities: Right and left groins without hematoma or bruit. Minimal ecchymosis noted. No clubbing, cyanosis noted. No edema noted. Upper extremity pulses 2+. Lower extremity pulses 2+. Capillary refill less than 3 seconds. Skin: No unusual lesions or rashes. No skin breakdown appreciated. Neuro: Awake, alert and oriented 3. Moves all extremities well without hemiparesis or paralysis. No essential tremor is appreciated. Discharge Results Procedures and tests throughout hospitalization: Pending Orders 03/31/16 04:00 BMP w/ Mg [Basic Metabolic Panel w/Mg] IN AM CBC [Comp Blood Count Auto Diff] IN AM 03/27/16 17:55 CL heart Stat Labs on day of discharge: Labs from last 24 hours 03/30/16 03/30/16 03/30/16 09:07 09:07 07:19 WBC 8.5 RBC 4.05 Hgb 12.0 L Hct 36.4 L MCV 89.9 MCH 30 MCHC 33.0 RDW 13.7 Plt Count 167 MPV 10.6 Neut % (Auto) 68.7 Lymph % (Auto) 15.5 L [place] % (Auto) 9.4 Eos % (Auto) 5.5 Baso % (Auto) 0.7 Neut # (Auto) 5.8 Lymph # (Auto) 1.3 L [place] # (Auto) 0.8 Eos # (Auto) 0.5 Baso # (Auto) 0.1 Immature Gran % 0.2 Nucleated RBC % 0.0 Immature Gran # 0.02 Nucleated RBCs # 0.00 Sodium 140 Potassium 4.2 Chloride 104 Carbon Dioxide 26 Anion Gap 14.2 BUN 19 H Creatinine 1.40 H GFR Calculation 72 BUN/Creatinine Ratio 13.00 Glucose 194 H POC Glucose 119 H Calculated Osmolality 285.4 Calcium 8.2 L Magnesium 1.8 03/30/16 03/29/16 03/29/16 02:38 19:49 18:05 WBC RBC Hgb Hct MCV MCH MCHC RDW Plt Count MPV Neut % (Auto) Lymph % (Auto) [place] % (Auto) Eos % (Auto) Baso % (Auto) Neut # (Auto) Lymph # (Auto) [place] # (Auto) Eos # (Auto) Baso # (Auto) Immature Gran % Nucleated RBC % Immature Gran # Nucleated RBCs # Sodium Potassium Chloride Carbon Dioxide Anion Gap BUN Creatinine GFR Calculation BUN/Creatinine Ratio Glucose POC Glucose 88 294 H 256 H Calculated Osmolality Calcium Magnesium 03/29/16 03/29/16 03/29/16 16:53 15:26 12:29 WBC RBC Hgb Hct MCV MCH MCHC RDW Plt Count MPV Neut % (Auto) Lymph % (Auto) [place] % (Auto) Eos % (Auto) Baso % (Auto) Neut # (Auto) Lymph # (Auto) [place] # (Auto) Eos # (Auto) Baso # (Auto) Immature Gran % Nucleated RBC % Immature Gran # Nucleated RBCs # Sodium Potassium Chloride Carbon Dioxide Anion Gap BUN Creatinine GFR Calculation BUN/Creatinine Ratio Glucose POC Glucose 47 L* 83 113 H Calculated Osmolality Calcium Magnesium - Imaging and Cardiology Cardiology Procedure: report reviewed by me Procedure: Chest x-ray: report reviewed by DS: Provider Date of admission: 03/28/16 08:28 Primary care physician: . No PCP Attending physician on admission: Kamran Guzman Consults: 03/27/16 20:40 Consult to Cardiac Rehabilitation [CONS] Routine Reason for Cardiac Rehabilitation: Appt Out Pt Cardiac Rehab Consult Comment: stemi Discharging clinician: Kristy Floyd NP Expected date of discharge: 03/30/16 <Pavel Barnett - Last Filed: 03/30/16 10:38> Hospital Course - Hospital Course Hospital Course: Cardiology note Status post inferior [place] with RCA vein graft stent. EF 30%. No pain. Walking in the hallway. Telemetry benign. Lab data sodium 140 potassium 4.2 BUN 19 creatinine 1.40 glucose 194 magnesium 1.8 Blood pressure 130/76 in the right arm by me Decreased breath sounds but clear Regular rhythm no gallop weight 136 kg Plan Home today. CPAP mask nightly. Office with Dr. Leo with EKG in 1 week home meds as outlined.
[2016-03-30 12:12] VITALS: BP 121/74
--- NOTE | 2016-03-31 16:13 | Physician Query Form ---
CLICK EDIT DOCUMENT TO SELECT QUERY ANSWER --> OK --> SIGN PROVIDERS: Make your selection(s) from the choices in EACH section by typing an "x" and enter comments in the comment section. Please use your independent medical judgment in providing your response. This request does not imply that any particular answer is desired or expected. CLINICAL INDICATORS: (Providers should not edit this section) Patient admitted with AMI sent emergenly to the clinical lab clerk and "high grade AVB" requiring temporary transvenous pacemaker insertion Based on the above, could you clarify the appropriate diagnosis, if significant , that supports the above abnormalities and additional evaluation, monitoring, and/or treatment rendered: ( X) Complete heart block ( ) 2nd degree heart block, type 1 ( ) 2nd degree heart block, type 2 ( ) 1st degree heart block ( ) Other, please specify: ( ) Clinically unable to determine COMMENTS: Use of terms such as suspected, likely, or probable (associated with a specific diagnosis that is being evaluated, monitored, or treated as if it exists) are acceptable and can be restated in the discharge summary if not ruled out. [facility]
== END 2016-03-30 14:01 | disposition home or self-care (01) | DRG 247 ==
LOC: N.CL 17:08 → EDSTATUS 17:21 → N.CC 19:01 → N.TELES 03-28 13:29
PROVIDERS: ADMIT Internal Medicine Cardiovascular Disease; ATTEND Internal Medicine Cardiovascular Disease

== ENCOUNTER 2017-01-27 22:35 | Inpatient (IN) ==
[2017-01-27] MEDS ORDERED: FUROSEMIDE 40 MG/4 ML VIAL IV STA (23:03)
[2017-01-27] MEDS ORDERED: ALUM/MAG/SIMETH/LIDO VISC 1:1 30 ML BOTTLE PO STA (23:03)
[2017-01-27] MEDS ORDERED: METOPROLOL TARTRATE 25 MG TABLET PO STA (23:03)
[2017-01-27] MEDS ORDERED: MORPHINE 2 MG/1 ML SYRINGE IV STA (23:03)
[2017-01-27] MEDS ORDERED: NITROGLYCERIN 2% OINT 1 INCH/GM PACK TOP STA (23:03)
[2017-01-27] MEDS ORDERED: ONDANSETRON 4 MG/2 ML VIAL IV STA (23:03)
[2017-01-27] MEDS ORDERED: ASPIRIN 325 MG TABLET PO STA (23:03)
[2017-01-27] MEDS ORDERED: NITROGLYCERIN 2% OINT 1 INCH/GM PACK TOP ONE (23:09)
[2017-01-27] MEDS ORDERED: FUROSEMIDE 40 MG/4 ML VIAL ONE (23:09)
[2017-01-27] MEDS ORDERED: MORPHINE 2 MG/1 ML SYRINGE ONE (23:10)
[2017-01-27] MEDS ORDERED: ASPIRIN 325 MG TABLET ONE (23:10)
[2017-01-27] MEDS ORDERED: ONDANSETRON 4 MG/2 ML VIAL ONE (23:11)
[2017-01-27] MEDS ORDERED: METOPROLOL TARTRATE 25 MG TABLET ONE (23:11)
[2017-01-27] MEDS ORDERED: ALUM/MAG/SIMETH/LIDO VISC 1:1 30 ML BOTTLE PO ONE (23:15)
[2017-01-28 00:11] LABS: Basophils # 0.1 10*3/uL (0.0-0.2); Basophils % 1.1 % (0.0-0.8); Eosinophils # 0.2 10*3/uL (0.0-0.87); Eosinophils % 1.8 % (0.00-10.9); Hematocrit 40.7 VOL% (42.0-52.0); Hemoglobin 14.2 GM/DL (14.0-18.0); Immature Granulocytes % 0.4 %; Immature Granulocytes Absolute 0.04 #; Lymphocytes # 1.7 10*3/uL (1.4-4.0); Lymphocytes % 16.2 % (21.2-54.2); Mean Corpuscular HGB Conc 34.9 GM/DL (32-36); Mean Corpuscular Hemoglobin 31 PG (27-34); Mean Corpuscular Volume 87.7 FL (87-102); Mean Platelet Volume 10.3 FL (9.6-12.0); Monocytes # 0.8 10*3/uL (0.11-0.8); Monocytes % 7.9 % (1.7-12.7); Neutrophils # 7.6 10*3/uL (1.4-7.4); Neutrophils % 72.6 % (38.7-73.9); Platelet Count 205 T/CUMM (130-400); Red Blood Count 4.64 MC/CUMM (3.8-5.5); White Blood Count 10.5 T/CUMM (4-12)
[2017-01-28 00:18] LABS: PT Patient Result 10.1 SECS
[2017-01-28 00:50] LABS: Alanine Aminotransferase 24 U/L (16-61); Albumin 3.2 G/DL (3.4-5.0); Alkaline Phosphatase 89 U/L (45-117); Aspartate Amino Transferase 21 U/L (0-37); Bilirubin,Total < 0.39 MG/DL (0.2-1.0); Blood Urea Nitrogen 31 MG/DL (7-18); Calcium 8.9 MG/DL (8.5-10.1); Glucose 166 MG/DL (74-106); Magnesium 1.8 MG/DL (1.8-2.4); Osmolality,Calculated 280.1 MOS/KG (273-304); Potassium 4.1 MMOL/L (3.5-5.1); Sodium 135 MMOL/L (136-145); Total Protein 7.2 G/DL (6.4-8.3)
[2017-01-28] MEDS ORDERED: ENOXAPARIN 100 MG/ML SYRINGE SUBCUT STA (01:04)
[2017-01-28] MEDS ORDERED: ENOXAPARIN 120 MG/0.8 ML SYRINGE SUBCUT ONE (01:22)
[2017-01-28] MEDS ORDERED: POTASSIUM CHLORIDE 20 MEQ TABLET PO PRN (01:40)
[2017-01-28] MEDS ORDERED: METHOCARBAMOL 750 MG TABLET PO PRN (01:40)
[2017-01-28] MEDS ORDERED: MAGNESIUM SULF RIDER 4 GM in PREMIX 1 EACH IV PRN (01:40)
[2017-01-28] MEDS ORDERED: GLUCAGON 1 MG VIAL IM PRN (01:40)
[2017-01-28] MEDS ORDERED: MAGNESIUM SULF RIDER 2 GM in PREMIX 1 EACH IV PRN ×2 (01:40→09:31)
[2017-01-28] MEDS ORDERED: ONDANSETRON 4 MG/2 ML VIAL IV PRN (01:40)
[2017-01-28] MEDS ORDERED: MORPHINE 2 MG/1 ML SYRINGE IV PRN (01:40)
[2017-01-28] MEDS ORDERED: DEXTROSE 50% 25 GM/50 ML VIAL IV PRN (01:40)
[2017-01-28 02:48] LABS: Basophils # 0.1 10*3/uL (0.0-0.2); Eosinophils # 0.2 10*3/uL (0.0-0.87); Eosinophils % 2.4 % (0.00-10.9); Hematocrit 41.6 VOL% (42.0-52.0); Hemoglobin 14.3 GM/DL (14.0-18.0); Immature Granulocytes % 0.2 %; Immature Granulocytes Absolute 0.02 #; Lymphocytes # 1.9 10*3/uL (1.4-4.0); Lymphocytes % 19.1 % (21.2-54.2); Mean Corpuscular HGB Conc 34.4 GM/DL (32-36); Mean Corpuscular Hemoglobin 30 PG (27-34); Mean Corpuscular Volume 87.6 FL (87-102); Mean Platelet Volume 10.4 FL (9.6-12.0); Monocytes # 0.8 10*3/uL (0.11-0.8); Monocytes % 8.1 % (1.7-12.7); Neutrophils # 6.9 10*3/uL (1.4-7.4); Neutrophils % 69.2 % (38.7-73.9); Platelet Count 213 T/CUMM (130-400); Red Blood Count 4.75 MC/CUMM (3.8-5.5); White Blood Count 9.9 T/CUMM (4-12)
[2017-01-28] MEDS: SODIUM CHLORIDE 0.9% 1,000 ML IV SCH ×3 (02:59→23:09)
[2017-01-28 03:24] LABS: Albumin 3.2 G/DL (3.4-5.0); Bilirubin,Total 0.4 MG/DL (0.2-1.0); Calcium 9.1 MG/DL (8.5-10.1); Magnesium 1.9 MG/DL (1.8-2.4); Osmolality,Calculated 277.2 MOS/KG (273-304); Potassium 4.3 MMOL/L (3.5-5.1); Risk Ratio 2.32; Thyroid Stimulating Hormone 2.25 uIU/ml (0.358-3.74); Total Protein 7.3 G/DL (6.4-8.3); VLDL CHOLESTEROL 19.2 MG/DL
[2017-01-28] MEDS ORDERED: NON-FORMULARY MEDICATION (Omeprazole [Prilosec] 20 MG) PO SCH (09:00)
[2017-01-28] MEDS ORDERED: POTASSIUM CHLORIDE RIDER 10 MEQ in PREMIX 1 EACH IV PRN (09:31)
[2017-01-28] MEDS: INSULIN REGULAR 100 UNIT/ML SUBCUT SCH ×4 (09:33→20:28)
[2017-01-28] MEDS: INSULIN NPH/REGULAR 70/30 100 UNIT/ML SUBCUT SCH ×2 (09:34→20:28)
[2017-01-28] MEDS: SPIRONOLACTONE 25 MG TABLET PO SCH (09:35)
[2017-01-28] MEDS: PROBENECID 500 MG TABLET PO SCH ×2 (09:35→20:32)
[2017-01-28] MEDS: ASPIRIN EC 81 MG TABLET PO SCH (09:35)
[2017-01-28] MEDS: CARVEDILOL 3.125 MG TABLET PO SCH ×2 (09:35→20:28)
[2017-01-28] MEDS: PANTOPRAZOLE 40 MG TABLET PO SCH (09:36)
[2017-01-28] MEDS: MAGNESIUM OXIDE 400 MG TABLET PO SCH (09:36)
[2017-01-28] MEDS: CLOPIDOGREL 75 MG TABLET PO SCH (09:36)
[2017-01-28] MEDS: CYANOCOBALAMIN 500 MCG TABLET PO SCH (09:36)
[2017-01-28] MEDS: LISINOPRIL/HCTZ 10-12.5 MG TABLET PO SCH (09:36)
[2017-01-28] MEDS ORDERED: diphenhydrAMINE CAP 25 MG CAPSULE PO ONE (10:00)
[2017-01-28] MEDS ORDERED: DIAZEPAM 5 MG TABLET PO ONE (10:00)
[2017-01-28] MEDS ORDERED: ENOXAPARIN 120 MG/0.8 ML SYRINGE SUBCUT SCH (12:00)
[2017-01-28] MEDS ORDERED: ZALEPLON 5 MG CAPSULE PO PRN (16:53)
[2017-01-28] MEDS ORDERED: diphenhydrAMINE CAP 25 MG CAPSULE PO PRN (16:54)
[2017-01-28] MEDS ORDERED: LIDOCAINE 1% 20 ML VIAL ONE (17:03)
[2017-01-28] MEDS ORDERED: MIDAZOLAM 2 MG/2 ML VIAL ONE (17:03)
[2017-01-28] MEDS ORDERED: fentaNYL 100 MCG/2 ML VIAL ONE (17:03)
[2017-01-28] MEDS ORDERED: diphenhydrAMINE 50 MG/1 ML VIAL ONE (17:19)
[2017-01-28] MEDS ORDERED: HYDROmorphone 2 MG/1 ML VIAL ONE (17:35)
[2017-01-28] MEDS ORDERED: TIROFIBAN 5,000 MCG/100 ML PREMIX IV ONE (17:41)
[2017-01-28] MEDS ORDERED: CLOPIDOGREL 300 MG TABLET ONE (18:04)
[2017-01-28] MEDS ORDERED: cloNIDine 0.1 MG TABLET ONE (18:06)
[2017-01-28] MEDS ORDERED: ONDANSETRON 4 MG/2 ML VIAL ONE (18:23)
[2017-01-28] MEDS ORDERED: ONDANSETRON 4 MG/2 ML VIAL IV ONE (18:24)
[2017-01-28] MEDS: ATORVASTATIN 40 MG TABLET PO SCH (20:27)
[2017-01-29] MEDS: SODIUM CHLORIDE 0.9% 1,000 ML IV SCH ×4 (04:11→16:02)
[2017-01-29] MEDS: ACETAMINOPHEN 325 MG TABLET PO PRN ×3 (04:57→21:47)
[2017-01-29 05:41] LABS: Basophils # 0.1 10*3/uL (0.0-0.2); Basophils % 0.9 % (0.0-0.8); Eosinophils # 0.1 10*3/uL (0.0-0.87); Eosinophils % 1.3 % (0.00-10.9); Hematocrit 42.5 VOL% (42.0-52.0); Hemoglobin 14.5 GM/DL (14.0-18.0); Immature Granulocytes % 0.3 %; Immature Granulocytes Absolute 0.03 #; Lymphocytes # 1.4 10*3/uL (1.4-4.0); Lymphocytes % 15.7 % (21.2-54.2); Mean Corpuscular HGB Conc 34.1 GM/DL (32-36); Mean Corpuscular Hemoglobin 31 PG (27-34); Mean Corpuscular Volume 89.5 FL (87-102); Mean Platelet Volume 10.5 FL (9.6-12.0); Monocytes # 0.7 10*3/uL (0.11-0.8); Monocytes % 8.4 % (1.7-12.7); Neutrophils # 6.4 10*3/uL (1.4-7.4); Neutrophils % 73.4 % (38.7-73.9); Platelet Count 201 T/CUMM (130-400); Red Blood Count 4.75 MC/CUMM (3.8-5.5); White Blood Count 8.7 T/CUMM (4-12)
[2017-01-29 06:50] LABS: Calcium 8.3 MG/DL (8.5-10.1); Osmolality,Calculated 277.1 MOS/KG (273-304); Potassium 4.5 MMOL/L (3.5-5.1)
[2017-01-29] MEDS: INSULIN REGULAR 100 UNIT/ML SUBCUT SCH ×4 (08:01→21:32)
[2017-01-29] MEDS: INSULIN NPH/REGULAR 70/30 100 UNIT/ML SUBCUT SCH ×3 (09:24→21:34)
[2017-01-29] MEDS: PROBENECID 500 MG TABLET PO SCH ×2 (09:25→21:25)
[2017-01-29] MEDS: MAGNESIUM OXIDE 400 MG TABLET PO SCH (09:25)
[2017-01-29] MEDS: CLOPIDOGREL 75 MG TABLET PO SCH (09:25)
[2017-01-29] MEDS: ASPIRIN EC 81 MG TABLET PO SCH (09:25)
[2017-01-29] MEDS: CARVEDILOL 3.125 MG TABLET PO SCH ×2 (09:25→21:25)
[2017-01-29] MEDS: SPIRONOLACTONE 25 MG TABLET PO SCH (09:25)
[2017-01-29] MEDS: CYANOCOBALAMIN 500 MCG TABLET PO SCH (09:25)
[2017-01-29] MEDS: PANTOPRAZOLE 40 MG TABLET PO SCH (09:25)
[2017-01-29] MEDS: LISINOPRIL/HCTZ 10-12.5 MG TABLET PO SCH (09:25)
[2017-01-29] MEDS: ATORVASTATIN 40 MG TABLET PO SCH (21:26)
[2017-01-30] MEDS: SODIUM CHLORIDE 0.9% 1,000 ML IV SCH ×2 (00:30→08:30)
[2017-01-30] MEDS: INSULIN REGULAR 100 UNIT/ML SUBCUT SCH (08:28)
[2017-01-30] MEDS: INSULIN NPH/REGULAR 70/30 100 UNIT/ML SUBCUT SCH (08:37)
[2017-01-30] MEDS: SPIRONOLACTONE 25 MG TABLET PO SCH (08:39)
[2017-01-30] MEDS: CLOPIDOGREL 75 MG TABLET PO SCH (08:39)
[2017-01-30] MEDS: LISINOPRIL/HCTZ 10-12.5 MG TABLET PO SCH (08:39)
[2017-01-30] MEDS: CYANOCOBALAMIN 500 MCG TABLET PO SCH (08:39)
[2017-01-30] MEDS: PANTOPRAZOLE 40 MG TABLET PO SCH (08:40)
[2017-01-30] MEDS: ASPIRIN EC 81 MG TABLET PO SCH (08:40)
[2017-01-30] MEDS: CARVEDILOL 3.125 MG TABLET PO SCH (08:40)
[2017-01-30] MEDS: PROBENECID 500 MG TABLET PO SCH (08:40)
[2017-01-30] MEDS: MAGNESIUM OXIDE 400 MG TABLET PO SCH (08:40)
[2017-01-30 12:24] VITALS: BP 120/68
== END 2017-01-30 12:13 | disposition home or self-care (01) | DRG 247 ==
LOC: N.ED 22:35 → N.EDINP 01-28 01:10 → N.CC 01-28 01:34 → N.TELES 01-30 09:14
PROVIDERS: ADMIT Internal Medicine Cardiovascular Disease; ATTEND Internal Medicine Cardiovascular Disease

== ENCOUNTER 2017-02-16 03:00 | Inpatient (IN) ==
[2017-02-16] MEDS ORDERED: SODIUM CHLORIDE 0.9% 4,200 ML IV ONE (03:39)
[2017-02-16] MEDS ORDERED: KETOROLAC 30 MG/1 ML VIAL IV STA (03:40)
[2017-02-16] MEDS ORDERED: CEFEPIME 2,000 MG in SODIUM CHLORIDE 0.9% 100 ML IV STA (03:40)
[2017-02-16] MEDS ORDERED: VANCOMYCIN INJ 1,000 MG in SODIUM CHLORIDE 0.9% 250 ML IV STA (03:40)
[2017-02-16] MEDS ORDERED: ACETAMINOPHEN 500 MG TABLET PO STA (03:40)
[2017-02-16] MEDS ORDERED: VANCOMYCIN 1,000 MG VIAL ONE (03:53)
[2017-02-16] MEDS ORDERED: KETOROLAC 30 MG/1 ML VIAL ONE (03:54)
[2017-02-16] MEDS ORDERED: ACETAMINOPHEN 500 MG TABLET ONE ×2 (03:54→05:35)
[2017-02-16 04:43] LABS: Basophils # 0.1 10*3/uL (0.0-0.2); Basophils % 0.7 % (0.0-0.8); Eosinophils # 0.1 10*3/uL (0.0-0.87); Eosinophils % 0.8 % (0.00-10.9); Hematocrit 42.3 VOL% (42.0-52.0); Hemoglobin 14.7 GM/DL (14.0-18.0); Immature Granulocytes % 0.4 %; Immature Granulocytes Absolute 0.06 #; Lymphocytes # 0.6 10*3/uL (1.4-4.0); Mean Corpuscular HGB Conc 34.8 GM/DL (32-36); Mean Corpuscular Hemoglobin 31 PG (27-34); Mean Corpuscular Volume 88.5 FL (87-102); Mean Platelet Volume 10.5 FL (9.6-12.0); Monocytes # 0.7 10*3/uL (0.11-0.8); Monocytes % 4.5 % (1.7-12.7); Neutrophils # 12.9 10*3/uL (1.4-7.4); Neutrophils % 89.6 % (38.7-73.9); Platelet Count 222 T/CUMM (130-400); Red Blood Count 4.78 MC/CUMM (3.8-5.5); Red Cell Distribution Width 13.2 % (9.3-17.3); White Blood Count 14.4 T/CUMM (4-12)
[2017-02-16 05:01] LABS: Alanine Aminotransferase 26 U/L (16-61); Albumin 3.4 G/DL (3.4-5.0); Alkaline Phosphatase 104 U/L (45-117); Aspartate Amino Transferase 25 U/L (0-37); Bilirubin,Total < 0.39 MG/DL (0.2-1.0); Blood Urea Nitrogen 27 MG/DL (7-18); Calcium 8.9 MG/DL (8.5-10.1); Glucose 141 MG/DL (74-106); Osmolality,Calculated 276.1 MOS/KG (273-304); Potassium 4.2 MMOL/L (3.5-5.1); Sodium 135 MMOL/L (136-145); Total Protein 7.5 G/DL (6.4-8.3)
[2017-02-16 05:43] LABS: Apearance,Urine CLEAR (Clear); Bilirubin,Urine Negative (Negative); Blood, Urine Negative (Negative); Glucose,Urine (UA) Negative (Negative); Ketones,Urine Negative (Negative); Mucus,Urine Occasional /LPF (Occasional); Nitrite,Urine Negative (Negative); Protein,Urine Negative; RBC,Urine <1 /HPF (0-4); Squamous Epithelial Cell,Urine Occasional /HPF (0-10); Urine Color Yellow (Yellow); Urine Specific Gravity 1.017 (1.001-1.035); Urine Urobilinogen < 2.0 EU/DL (0.2-1.0); WBC,Urine <1 /HPF (0-6)
[2017-02-16] MEDS ORDERED: DEXTROSE 50% 25 GM/50 ML VIAL IV PRN ×2 (06:14→06:21)
[2017-02-16] MEDS ORDERED: GLUCAGON 1 MG VIAL IM PRN ×2 (06:14→06:21)
[2017-02-16] MEDS: INSULIN REGULAR 100 UNIT/ML SUBCUT SCH ×4 (07:53→21:04)
[2017-02-16 08:43] LABS: Band Neutrophils 8 % (0-10); Lymphocytes 4 % (20-55); Segmented Neutrophils 85 % (50-85); Total Cells Counted 100
[2017-02-16 08:44] LABS: Hypochromasia 1+; Microcytosis 1+; Platelet Estimate Normal
[2017-02-16] MEDS: ENOXAPARIN 40 MG/0.4 ML SYRINGE SUBCUT SCH (08:50)
[2017-02-16] MEDS: PANTOPRAZOLE 40 MG TABLET PO SCH ×2 (08:50→21:05)
[2017-02-16] MEDS: PIPERACILLIN/TAZOBACTAM 3,375 MG in SODIUM CHLORIDE 0.9% 100 ML IV SCH ×2 (08:51→21:04)
[2017-02-16] MEDS: SODIUM CHLORIDE 0.9% 1,000 ML IV SCH ×2 (08:51→17:00)
[2017-02-16] MEDS: VANCOMYCIN INJ 2,000 MG in SODIUM CHLORIDE 0.9% 500 ML IV SCH (14:15)
[2017-02-16] MEDS ORDERED: METHOCARBAMOL 750 MG TABLET PO PRN (16:15)
[2017-02-16] MEDS: ACETAMINOPHEN 325 MG TABLET PO PRN (16:58)
[2017-02-16] MEDS ORDERED: IBUPROFEN 400 MG TABLET PO ONE (18:06)
[2017-02-16] MEDS: CARVEDILOL 3.125 MG TABLET PO SCH (21:05)
[2017-02-16] MEDS: ATORVASTATIN 80 MG TABLET PO SCH (21:05)
[2017-02-16] MEDS: PROBENECID 500 MG TABLET PO SCH (21:05)
[2017-02-17] MEDS: VANCOMYCIN INJ 2,000 MG in SODIUM CHLORIDE 0.9% 500 ML IV SCH ×2 (02:45→14:46)
[2017-02-17] MEDS: SODIUM CHLORIDE 0.9% 1,000 ML IV SCH ×2 (03:03→19:38)
[2017-02-17] MEDS: PIPERACILLIN/TAZOBACTAM 3,375 MG in SODIUM CHLORIDE 0.9% 100 ML IV SCH (05:16)
[2017-02-17 07:55] LABS: Basophils # 0.1 10*3/uL (0.0-0.2); Basophils % 0.8 % (0.0-0.8); Eosinophils % 0.2 % (0.00-10.9); Hematocrit 38.3 VOL% (42.0-52.0); Hemoglobin 13.1 GM/DL (14.0-18.0); Immature Granulocytes % 0.5 %; Immature Granulocytes Absolute 0.04 #; Lymphocytes # 0.7 10*3/uL (1.4-4.0); Lymphocytes % 8.2 % (21.2-54.2); Mean Corpuscular HGB Conc 34.2 GM/DL (32-36); Mean Corpuscular Hemoglobin 30 PG (27-34); Mean Corpuscular Volume 88.5 FL (87-102); Mean Platelet Volume 10.3 FL (9.6-12.0); Monocytes # 0.5 10*3/uL (0.11-0.8); Monocytes % 6.2 % (1.7-12.7); Neutrophils # 7.3 10*3/uL (1.4-7.4); Neutrophils % 84.1 % (38.7-73.9); Platelet Count 192 T/CUMM (130-400); Red Blood Count 4.33 MC/CUMM (3.8-5.5); Red Cell Distribution Width 13.5 % (9.3-17.3); White Blood Count 8.7 T/CUMM (4-12)
[2017-02-17] MEDS: INSULIN REGULAR 100 UNIT/ML SUBCUT SCH ×4 (08:22→20:44)
[2017-02-17] MEDS: ACETAMINOPHEN 325 MG TABLET PO PRN ×3 (08:23→20:42)
[2017-02-17 08:25] LABS: Albumin 2.6 G/DL (3.4-5.0); Bilirubin,Total 0.8 MG/DL (0.2-1.0); Calcium 8.3 MG/DL (8.5-10.1); Potassium 4.3 MMOL/L (3.5-5.1); Total Protein 6.1 G/DL (6.4-8.3)
[2017-02-17] MEDS: PROBENECID 500 MG TABLET PO SCH ×2 (09:32→20:42)
[2017-02-17] MEDS: ASPIRIN EC 81 MG TABLET PO SCH (09:33)
[2017-02-17] MEDS: SPIRONOLACTONE 25 MG TABLET PO SCH (09:33)
[2017-02-17] MEDS: PANTOPRAZOLE 40 MG TABLET PO SCH ×2 (09:33→20:42)
[2017-02-17] MEDS: LISINOPRIL/HCTZ 10-12.5 MG TABLET PO SCH (09:34)
[2017-02-17] MEDS: CARVEDILOL 3.125 MG TABLET PO SCH ×2 (09:34→20:42)
[2017-02-17] MEDS: ENOXAPARIN 40 MG/0.4 ML SYRINGE SUBCUT SCH (09:34)
[2017-02-17] MEDS: CLOPIDOGREL 75 MG TABLET PO SCH (10:53)
[2017-02-17] MEDS: ceFAZolin 2,000 MG in PREMIX 1 EACH IV SCH ×2 (12:31→19:51)
[2017-02-17] MEDS ORDERED: ALUMINUM/MAGNES/SIMETH MAX STR 30 ML UDCUP PO PRN (18:58)
[2017-02-17] MEDS: ONDANSETRON 4 MG/2 ML VIAL IV PRN (19:51)
[2017-02-17] MEDS: ATORVASTATIN 80 MG TABLET PO SCH (20:42)
[2017-02-18] MEDS: SODIUM CHLORIDE 0.9% 1,000 ML IV SCH ×3 (02:30→17:54)
[2017-02-18] MEDS: ceFAZolin 2,000 MG in PREMIX 1 EACH IV SCH ×4 (02:41→20:11)
[2017-02-18] MEDS: VANCOMYCIN INJ 2,000 MG in SODIUM CHLORIDE 0.9% 500 ML IV SCH ×2 (04:59→18:49)
[2017-02-18] MEDS: INSULIN REGULAR 100 UNIT/ML SUBCUT SCH ×4 (09:16→21:16)
[2017-02-18] MEDS: ACETAMINOPHEN 325 MG TABLET PO PRN ×2 (09:16→20:12)
[2017-02-18] MEDS: SPIRONOLACTONE 25 MG TABLET PO SCH (10:40)
[2017-02-18] MEDS: PROBENECID 500 MG TABLET PO SCH ×2 (10:41→20:12)
[2017-02-18] MEDS: ENOXAPARIN 40 MG/0.4 ML SYRINGE SUBCUT SCH (10:41)
[2017-02-18] MEDS: PANTOPRAZOLE 40 MG TABLET PO SCH ×2 (10:41→20:12)
[2017-02-18] MEDS: LISINOPRIL/HCTZ 10-12.5 MG TABLET PO SCH (10:41)
[2017-02-18] MEDS: CARVEDILOL 3.125 MG TABLET PO SCH ×2 (10:41→20:12)
[2017-02-18] MEDS: ASPIRIN EC 81 MG TABLET PO SCH (10:41)
[2017-02-18] MEDS: CLOPIDOGREL 75 MG TABLET PO SCH (10:41)
[2017-02-18] MEDS: ONDANSETRON 4 MG/2 ML VIAL IV PRN (20:11)
[2017-02-18] MEDS: ATORVASTATIN 80 MG TABLET PO SCH (20:12)
[2017-02-19] MEDS: VANCOMYCIN INJ 2,000 MG in SODIUM CHLORIDE 0.9% 500 ML IV SCH ×2 (01:17→18:16)
[2017-02-19] MEDS: SODIUM CHLORIDE 0.9% 1,000 ML IV SCH ×3 (01:17→15:47)
[2017-02-19] MEDS: ONDANSETRON 4 MG/2 ML VIAL IV PRN ×2 (01:22→18:22)
[2017-02-19] MEDS: ACETAMINOPHEN 325 MG TABLET PO PRN ×3 (04:08→20:21)
[2017-02-19] MEDS: ceFAZolin 2,000 MG in PREMIX 1 EACH IV SCH ×4 (04:37→20:21)
[2017-02-19 07:33] LABS: Basophils # 0.1 10*3/uL (0.0-0.2); Basophils % 0.9 % (0.0-0.8); Eosinophils # 0.3 10*3/uL (0.0-0.87); Eosinophils % 3.5 % (0.00-10.9); Hematocrit 33.8 VOL% (42.0-52.0); Hemoglobin 11.8 GM/DL (14.0-18.0); Immature Granulocytes % 0.4 %; Immature Granulocytes Absolute 0.03 #; Lymphocytes # 1.1 10*3/uL (1.4-4.0); Lymphocytes % 14.3 % (21.2-54.2); Mean Corpuscular HGB Conc 34.9 GM/DL (32-36); Mean Corpuscular Hemoglobin 30 PG (27-34); Mean Corpuscular Volume 86.9 FL (87-102); Mean Platelet Volume 10.3 FL (9.6-12.0); Monocytes # 0.6 10*3/uL (0.11-0.8); Monocytes % 7.2 % (1.7-12.7); Neutrophils # 5.7 10*3/uL (1.4-7.4); Neutrophils % 73.7 % (38.7-73.9); Platelet Count 195 T/CUMM (130-400); Red Blood Count 3.89 MC/CUMM (3.8-5.5); Red Cell Distribution Width 13.2 % (9.3-17.3); White Blood Count 7.8 T/CUMM (4-12)
[2017-02-19 08:02] LABS: Calcium 8.2 MG/DL (8.5-10.1); Osmolality,Calculated 275.1 MOS/KG (273-304); Potassium 4.3 MMOL/L (3.5-5.1)
[2017-02-19] MEDS: PANTOPRAZOLE 40 MG TABLET PO SCH ×2 (09:05→20:21)
[2017-02-19] MEDS: SPIRONOLACTONE 25 MG TABLET PO SCH (09:06)
[2017-02-19] MEDS: ASPIRIN EC 81 MG TABLET PO SCH (09:06)
[2017-02-19] MEDS: ENOXAPARIN 40 MG/0.4 ML SYRINGE SUBCUT SCH (09:06)
[2017-02-19] MEDS: LISINOPRIL/HCTZ 10-12.5 MG TABLET PO SCH (09:06)
[2017-02-19] MEDS: PROBENECID 500 MG TABLET PO SCH ×2 (09:06→20:21)
[2017-02-19] MEDS: CLOPIDOGREL 75 MG TABLET PO SCH (09:06)
[2017-02-19] MEDS: INSULIN REGULAR 100 UNIT/ML SUBCUT SCH ×4 (09:06→21:43)
[2017-02-19] MEDS: CARVEDILOL 3.125 MG TABLET PO SCH ×2 (09:06→20:21)
[2017-02-19] MEDS ORDERED: FUROSEMIDE 40 MG/4 ML VIAL IV ONE (17:00)
[2017-02-19] MEDS: ATORVASTATIN 80 MG TABLET PO SCH (20:21)
[2017-02-20] MEDS: ACETAMINOPHEN 325 MG TABLET PO PRN (04:37)
[2017-02-20] MEDS: ceFAZolin 2,000 MG in PREMIX 1 EACH IV SCH ×2 (04:37→10:03)
[2017-02-20 05:09] LABS: Calcium 8.6 MG/DL (8.5-10.1); Osmolality,Calculated 274.1 MOS/KG (273-304)
[2017-02-20 08:08] VITALS: BP 152/65
[2017-02-20] MEDS: ENOXAPARIN 40 MG/0.4 ML SYRINGE SUBCUT SCH (09:05)
[2017-02-20] MEDS: PANTOPRAZOLE 40 MG TABLET PO SCH (09:05)
[2017-02-20] MEDS: SPIRONOLACTONE 25 MG TABLET PO SCH (09:05)
[2017-02-20] MEDS: CLOPIDOGREL 75 MG TABLET PO SCH (09:05)
[2017-02-20] MEDS: CARVEDILOL 3.125 MG TABLET PO SCH (09:05)
[2017-02-20] MEDS: INSULIN REGULAR 100 UNIT/ML SUBCUT SCH ×2 (09:05→12:30)
[2017-02-20] MEDS: LISINOPRIL/HCTZ 10-12.5 MG TABLET PO SCH (09:05)
[2017-02-20] MEDS: ASPIRIN EC 81 MG TABLET PO SCH (09:05)
[2017-02-20] MEDS: PROBENECID 500 MG TABLET PO SCH (09:05)
[2017-02-20] MEDS: VANCOMYCIN INJ 2,000 MG in SODIUM CHLORIDE 0.9% 500 ML IV SCH (11:07)
== END 2017-02-20 13:48 | disposition home or self-care (01) | DRG 872 ==
LOC: N.ED 03:00 → N.EDINP 06:14 → N.5E 06:47
PROVIDERS: ADMIT Internal Medicine; ATTEND Internal Medicine

== ENCOUNTER 2020-01-09 18:15 | Observation (INO) ==
[2020-01-09] MEDS ORDERED: MECLIZINE 25 MG TABLET PO STA (19:58)
[2020-01-09] MEDS ORDERED: ASPIRIN 325 MG TABLET PO STA (19:58)
[2020-01-09] MEDS ORDERED: ONDANSETRON 4 MG/2 ML VIAL IV STA (19:58)
[2020-01-09 20:18] LABS: Basophils # 0.1 10*3/uL (0.0-0.2); Basophils % 0.7 % (0.0-0.8); Eosinophils # 0.2 10*3/uL (0.0-0.87); Hematocrit 39.8 VOL% (42.0-52.0); Hemoglobin 13.3 GM/DL (14.0-18.0); Immature Granulocytes % 0.6 %; Immature Granulocytes Absolute 0.07 #; Lymphocytes # 1.8 10*3/uL (1.4-4.0); Lymphocytes % 15.9 % (21.2-54.2); Mean Corpuscular HGB Conc 33.4 GM/DL (32-36); Mean Corpuscular Volume 93.4 FL (87-102); Mean Platelet Volume 10.7 FL (9.6-12.0); Monocytes % 6.4 % (1.7-12.7); Neutrophils % 74.4 % (38.7-73.9); Platelet Count 239 T/CUMM (130-400); Red Blood Count 4.26 MC/CUMM (3.8-5.5); Red Cell Distribution Width 13.3 % (9.3-17.3); White Blood Count 11.1 T/CUMM (4-12)
[2020-01-09 20:22] LABS: PT Patient Result 10.3 SECS (9.8-11.9)
[2020-01-09 20:47] LABS: Alanine Aminotransferase 23 U/L (16-61); Albumin 3.2 G/DL (3.4-5.0); Alkaline Phosphatase 69 U/L (45-117); Aspartate Amino Transferase 15 U/L (0-37); Bilirubin,Total < 0.39 MG/DL (0.2-1.0); Blood Urea Nitrogen 23 MG/DL (7-18); Calcium 8.5 MG/DL (8.5-10.1); Estimated Glom Filtration Rate 67 ML/MIN; Glucose 192 MG/DL (74-106); Osmolality,Calculated 285.5 MOS/KG (273-304); Total Protein 7.1 G/DL (6.4-8.3)
[2020-01-09] MEDS ORDERED: MAGNESIUM SULF RIDER 2 GM in PREMIX 1 EACH IV STA (20:53)
[2020-01-09] MEDS ORDERED: NICOTINE 21 MG/24 HR PATCH TRANSDERM PRN (22:06)
[2020-01-09] MEDS ORDERED: GLUCAGON 1 MG VIAL IM PRN (22:06)
[2020-01-09] MEDS ORDERED: ONDANSETRON 4 MG/2 ML VIAL IV PRN (22:06)
[2020-01-09] MEDS ORDERED: hydrALAZINE 20 MG/1 ML VIAL IV PRN (22:06)
[2020-01-09] MEDS ORDERED: ACETAMINOPHEN 325 MG TABLET PO PRN (22:06)
[2020-01-09] MEDS ORDERED: diphenhydrAMINE CAP 25 MG CAPSULE PO PRN (22:06)
[2020-01-09] MEDS ORDERED: guaiFENesin/DM ER 600-30 MG TABLET PO PRN (22:06)
[2020-01-09] MEDS ORDERED: DEXTROSE 50% 25 GM/50 ML VIAL IV PRN (22:06)
[2020-01-09 22:44] LABS: ABG Base Excess 0.2 MMOL/L (-2.5-2.5); ABG HCO3 24.6 MMOL/L (20-26); ABG PCO2 46.3 MM HG (35-48); ABG PH 7.359 (7.35-7.45); ABG PO2 93.9 MM HG (80-95); ABG TCO2 22.9 MMOL/L (23-27)
[2020-01-10 00:30] LABS: Bilirubin,Urine Negative (Negative); Blood, Urine Negative (Negative); Glucose,Urine (UA) Negative (Negative); Ketones,Urine Negative (Negative); Nitrite,Urine Negative (Negative); Protein,Urine Negative; RBC,Urine 1 /HPF (0-4); Urine Appearance CLEAR (Clear); Urine Color Yellow (Yellow); Urine Specific Gravity 1.017 (1.001-1.035); Urine Urobilinogen < 2.0 EU/DL (0.2-1.0); WBC,Urine 1 /HPF (0-6)
[2020-01-10] MEDS: ALBUTEROL/IPRATROPIUM 3 ML NEB RESP TX SCH ×4 (01:58→20:20)
[2020-01-10 04:30] LABS: Alanine Aminotransferase 20 U/L (16-61); Albumin 2.9 G/DL (3.4-5.0); Alkaline Phosphatase 64 U/L (45-117); Aspartate Amino Transferase 14 U/L (0-37); Bilirubin,Total < 0.39 MG/DL (0.2-1.0); Blood Urea Nitrogen 23 MG/DL (7-18); Calcium 8.8 MG/DL (8.5-10.1); Estimated Glom Filtration Rate 73 ML/MIN; Glucose 104 MG/DL (74-106); Total Protein 7.2 G/DL (6.4-8.3)
[2020-01-10] MEDS: INSULIN REGULAR 100 UNIT/ML SUBCUT SCH ×4 (08:01→21:55)
[2020-01-10] MEDS ORDERED: METHOCARBAMOL 750 MG TABLET PO PRN (11:35)
[2020-01-10] MEDS ORDERED: MAGNESIUM SULF RIDER 2 GM in PREMIX 1 EACH IV ONE (11:45)
[2020-01-10] MEDS ORDERED: ALBUTEROL 2.5 MG/3 ML NEB RESP TX PRN (13:00)
[2020-01-10] MEDS: ASPIRIN EC 81 MG TABLET PO SCH (13:16)
[2020-01-10] MEDS: CLOPIDOGREL 75 MG TABLET PO SCH (13:43)
[2020-01-10] MEDS: EZETIMIBE 10 MG TABLET PO SCH (13:43)
[2020-01-10] MEDS: SPIRONOLACTONE 25 MG TABLET PO SCH (13:44)
[2020-01-10] MEDS: carvediloL 3.125 MG TABLET PO SCH ×2 (13:44→21:55)
[2020-01-10] MEDS: LISINOPRIL/HCTZ 10-12.5 MG TABLET PO SCH (13:44)
[2020-01-10] MEDS ORDERED: INSULIN NPH/REGULAR 70/30 100 UNIT/ML SUBCUT SCH (16:30)
[2020-01-10] MEDS: PROBENECID 500 MG TABLET PO SCH (21:55)
[2020-01-11] MEDS: BUDESONIDE/FORMOTEROL 160-4.5 INHALER 6 GM INH SCH ×2 (00:19→08:42)
[2020-01-11] MEDS: ALBUTEROL/IPRATROPIUM 3 ML NEB RESP TX SCH ×3 (01:10→13:03)
[2020-01-11] MEDS ORDERED: INSULIN NPH/REGULAR 70/30 100 UNIT/ML SUBCUT SCH (07:30)
[2020-01-11] MEDS: INSULIN REGULAR 100 UNIT/ML SUBCUT SCH ×2 (08:35→13:18)
[2020-01-11] MEDS: ASPIRIN EC 81 MG TABLET PO SCH (08:37)
[2020-01-11] MEDS: PROBENECID 500 MG TABLET PO SCH (08:40)
[2020-01-11] MEDS: SPIRONOLACTONE 25 MG TABLET PO SCH (08:40)
[2020-01-11] MEDS: carvediloL 3.125 MG TABLET PO SCH (08:43)
[2020-01-11] MEDS: LISINOPRIL/HCTZ 10-12.5 MG TABLET PO SCH (08:44)
[2020-01-11] MEDS: CLOPIDOGREL 75 MG TABLET PO SCH (08:47)
[2020-01-11] MEDS: EZETIMIBE 10 MG TABLET PO SCH (08:52)
[2020-01-11] MEDS ORDERED: CHOLECALCIFEROL 1,000 UNIT TABLET PO SCH (09:00)
[2020-01-11] MEDS ORDERED: ISOSORBIDE MONONITRATE 30 MG TABLET PO SCH (09:00)
[2020-01-11] MEDS ORDERED: ASCORBIC ACID 500 MG TABLET PO SCH (09:00)
[2020-01-11] MEDS ORDERED: CYANOCOBALAMIN 500 MCG TABLET PO SCH (09:00)
[2020-01-11] MEDS ORDERED: MAGNESIUM OXIDE 400 MG TABLET PO SCH (09:00)
[2020-01-11] MEDS ORDERED: MONTELUKAST 10 MG TABLET PO SCH (09:00)
[2020-01-11] MEDS ORDERED: PANTOPRAZOLE 40 MG TABLET PO SCH (09:00)
[2020-01-11 12:52] VITALS: BP 109/50
== END 2020-01-11 14:16 | disposition home or self-care (01) ==
LOC: N.EDINP 18:15 → N.ED 18:15 → N.TELES 01-10 13:07
PROVIDERS: ADMIT Internal Medicine; ATTEND Internal Medicine

== ENCOUNTER 2020-08-16 14:11 | Observation (INO) ==
[2020-08-16 19:48] LABS: Bilirubin,Urine Negative (Negative); Blood, Urine Negative (Negative); Glucose,Urine (UA) Negative (Negative); Ketones,Urine Negative (Negative); Mucus,Urine Occasional /LPF (Occasional); Nitrite,Urine Negative (Negative); Protein,Urine Negative; Squamous Epithelial Cell,Urine Occasional /HPF (0-10); Urine Appearance CLEAR (Clear); Urine Color Yellow (Yellow); Urine Specific Gravity 1.016 (1.001-1.035); Urine Urobilinogen < 2.0 EU/DL (0.2-1.0)
[2020-08-16 20:52] LABS: Basophils # 0.1 10*3/uL (0.0-0.2); Eosinophils # 0.2 10*3/uL (0.0-0.87); Hematocrit 43.1 VOL% (42.0-52.0); Hemoglobin 13.9 GM/DL (14.0-18.0); Immature Granulocytes % 0.4 %; Immature Granulocytes Absolute 0.04 #; Lymphocytes % 18.9 % (21.2-54.2); Mean Corpuscular HGB Conc 32.3 GM/DL (32-36); Mean Corpuscular Volume 95.8 FL (87-102); Mean Platelet Volume 9.7 FL (9.6-12.0); Monocytes % 8.6 % (1.7-12.7); Neutrophils % 69.1 % (38.7-73.9); Platelet Count 272 T/CUMM (130-400); Red Cell Distribution Width 13.7 % (9.3-17.3); White Blood Count 10.3 T/CUMM (4-12)
[2020-08-16 21:10] LABS: Alanine Aminotransferase 18 U/L (16-61); Albumin 3.5 G/DL (3.4-5.0); Alkaline Phosphatase 64 U/L (45-117); Aspartate Amino Transferase 16 U/L (0-37); Bilirubin,Total < 0.39 MG/DL (0.2-1.0); Blood Urea Nitrogen 36 MG/DL (7-18); Calcium 9.5 MG/DL (8.5-10.1); Carbon Dioxide 25 MMOL/L (21-32); Estimated Glom Filtration Rate 52 ML/MIN; Glucose 65 MG/DL (74-106); Osmolality,Calculated 278.8 MOS/KG (273-304); Potassium 4.3 MMOL/L (3.5-5.1); Sodium 137 MMOL/L (136-145)
[2020-08-16] MEDS ORDERED: SODIUM CHLORIDE 0.9% 1,000 ML IV STA (21:36)
[2020-08-16] MEDS ORDERED: ENOXAPARIN 100 MG/ML SYRINGE SUBCUT STA (21:40)
[2020-08-16] MEDS ORDERED: DOCUSATE SODIUM 100 MG CAPSULE PO PRN (23:22)
[2020-08-16] MEDS ORDERED: GLUCAGON 1 MG VIAL IM PRN (23:22)
[2020-08-16] MEDS ORDERED: DEXTROSE 50% 25 GM/50 ML VIAL IV PRN (23:22)
[2020-08-16] MEDS ORDERED: ONDANSETRON 4 MG/2 ML VIAL IV PRN (23:22)
[2020-08-17] MEDS: ACETAMINOPHEN 325 MG TABLET PO PRN ×2 (00:44→11:28)
[2020-08-17 06:00] LABS: Basophils # 0.1 10*3/uL (0.0-0.2); Basophils % 0.9 % (0.0-0.8); Eosinophils # 0.2 10*3/uL (0.0-0.87); Eosinophils % 2.3 % (0.00-10.9); Hemoglobin 12.9 GM/DL (14.0-18.0); Immature Granulocytes % 0.4 %; Immature Granulocytes Absolute 0.04 #; Lymphocytes # 1.8 10*3/uL (1.4-4.0); Lymphocytes % 18.1 % (21.2-54.2); Mean Corpuscular HGB Conc 32.3 GM/DL (32-36); Mean Corpuscular Volume 95.9 FL (87-102); Mean Platelet Volume 10.2 FL (9.6-12.0); Monocytes % 9.1 % (1.7-12.7); Neutrophils % 69.2 % (38.7-73.9); Platelet Count 241 T/CUMM (130-400); Red Blood Count 4.17 MC/CUMM (3.8-5.5); Red Cell Distribution Width 13.7 % (9.3-17.3); White Blood Count 9.7 T/CUMM (4-12)
[2020-08-17 06:23] LABS: Osmolality,Calculated 280.7 MOS/KG (273-304)
[2020-08-17] MEDS: INSULIN LISPRO 100 UNIT/ML SUBCUT SCH ×2 (07:52→12:22)
[2020-08-17] MEDS ORDERED: ENOXAPARIN 150 MG/ML SYRINGE SUBCUT SCH (09:00)
[2020-08-17 12:34] VITALS: BP 150/95
== END 2020-08-17 14:10 | disposition home or self-care (01) ==
LOC: N.EDINP 14:11 → N.ED 14:11 → N.3E 08-17 01:14
PROVIDERS: ADMIT Internal Medicine; ATTEND Internal Medicine

== ENCOUNTER 2021-02-06 08:58 | Inpatient (IN) ==
[2021-02-06] MEDS ORDERED: DEXTROSE 50% 25 GM/50 ML VIAL IV PRN (12:17)
[2021-02-06] MEDS ORDERED: GLUCAGON 1 MG VIAL IM PRN (12:17)
[2021-02-06] MEDS ORDERED: LACTULOSE 20 GM/30 ML UDCUP PO PRN (13:07)
[2021-02-06 13:17] LABS: Basophils # 0.1 10*3/uL (0.0-0.2); Basophils % 0.5 % (0.0-0.8); Eosinophils # 0.1 10*3/uL (0.0-0.87); Hematocrit 43.2 VOL% (42.0-52.0); Hemoglobin 14.2 GM/DL (14.0-18.0); Immature Granulocytes % 0.7 %; Immature Granulocytes Absolute 0.08 #; Lymphocytes # 1.1 10*3/uL (1.4-4.0); Lymphocytes % 9.1 % (21.2-54.2); Mean Corpuscular HGB Conc 32.9 GM/DL (32-36); Mean Corpuscular Volume 90.4 FL (87-102); Mean Platelet Volume 10.2 FL (9.6-12.0); Neutrophils % 81.7 % (38.7-73.9); Platelet Count 354 T/CUMM (130-400); Red Blood Count 4.78 MC/CUMM (3.8-5.5); Red Cell Distribution Width 14.9 % (9.3-17.3); White Blood Count 11.8 T/CUMM (4-12)
[2021-02-06 13:36] LABS: Calcium 10.6 MG/DL (8.5-10.1); Osmolality,Calculated 281.8 MOS/KG (273-304); Potassium 5.4 MMOL/L (3.5-5.1)
[2021-02-06] MEDS ORDERED: HYDROmorphone 2 MG/1 ML VIAL IV STA (13:46)
[2021-02-06] MEDS ORDERED: ONDANSETRON 4 MG/2 ML VIAL IV STA (13:46)
[2021-02-06] MEDS ORDERED: hydrALAZINE 20 MG/1 ML VIAL IV PRN (14:14)
[2021-02-06] MEDS ORDERED: SODIUM POLYSTYRENE SULFATE 15 GM/60 ML BOTTLE PO STA (14:19)
[2021-02-06 14:22] LABS: INR 1.1; PT Patient Result 11.9 SECS (10.5-12.0); Partial Thromboplastin Time 24.5 SECS (23.8-32.1)
[2021-02-06] MEDS ORDERED: ONDANSETRON 4 MG/2 ML VIAL IV ONE (17:53)
[2021-02-06] MEDS: DOCUSATE SODIUM 100 MG CAPSULE PO SCH ×2 (17:55→21:00)
[2021-02-06] MEDS: ACETAMINOPHEN 325 MG TABLET PO PRN ×2 (18:02→20:26)
[2021-02-06] MEDS: POLYETHYLENE GLYCOL POWDER 17 GM PACK PO SCH (21:00)
[2021-02-06] MEDS: ONDANSETRON 4 MG/2 ML VIAL IV PRN (23:37)
[2021-02-07] MEDS: ACETAMINOPHEN 325 MG TABLET PO PRN (03:27)
[2021-02-07] MEDS: SODIUM CHLORIDE 0.9% 1,000 ML IV SCH ×3 (03:30→23:38)
[2021-02-07 06:24] LABS: Basophils # 0.1 10*3/uL (0.0-0.2); Basophils % 0.8 % (0.0-0.8); Eosinophils # 0.2 10*3/uL (0.0-0.87); Eosinophils % 2.1 % (0.00-10.9); Hematocrit 40.5 VOL% (42.0-52.0); Hemoglobin 13.5 GM/DL (14.0-18.0); Immature Granulocytes % 0.5 %; Immature Granulocytes Absolute 0.05 #; Lymphocytes # 1.4 10*3/uL (1.4-4.0); Lymphocytes % 13.7 % (21.2-54.2); Mean Corpuscular HGB Conc 33.3 GM/DL (32-36); Mean Corpuscular Volume 91.8 FL (87-102); Mean Platelet Volume 10.5 FL (9.6-12.0); Monocytes % 8.7 % (1.7-12.7); Neutrophils % 74.2 % (38.7-73.9); Platelet Count 344 T/CUMM (130-400); Red Blood Count 4.41 MC/CUMM (3.8-5.5); White Blood Count 10.2 T/CUMM (4-12)
[2021-02-07 06:49] LABS: Osmolality,Calculated 281.9 MOS/KG (273-304)
[2021-02-07 07:21] LABS: Risk Ratio 3.04; Thyroid Stimulating Hormone 1.66 uIU/ml (0.358-3.74); VLDL Cholesterol 26.8 MG/DL
[2021-02-07] MEDS: POLYETHYLENE GLYCOL POWDER 17 GM PACK PO SCH (09:08)
[2021-02-07] MEDS: EZETIMIBE 10 MG TABLET PO SCH (09:09)
[2021-02-07] MEDS: carvediloL 3.125 MG TABLET PO SCH ×2 (09:09→16:41)
[2021-02-07] MEDS: ISOSORBIDE MONONITRATE 30 MG TABLET PO SCH (09:09)
[2021-02-07] MEDS: ASCORBIC ACID 500 MG TABLET PO SCH (09:09)
[2021-02-07] MEDS: DOCUSATE SODIUM 100 MG CAPSULE PO SCH ×2 (09:09→21:13)
[2021-02-07] MEDS: PANTOPRAZOLE 40 MG TABLET PO SCH (09:10)
[2021-02-07] MEDS: CHOLECALCIFEROL 1,000 UNIT TABLET PO SCH (09:10)
[2021-02-07] MEDS: MONTELUKAST 10 MG TABLET PO SCH (09:10)
[2021-02-07] MEDS: INSULIN NPH/REGULAR 70/30 100 UNIT/ML SUBCUT SCH ×3 (11:06→17:33)
[2021-02-07] MEDS: BUDESONIDE/FORMOTEROL 160-4.5 INHALER 6 GM INH SCH ×2 (11:06→21:13)
[2021-02-07] MEDS ORDERED: methylPREDNISolone ACETATE 80 MG/1 ML VIAL ONE (11:35)
[2021-02-07] MEDS ORDERED: ROPIVACAINE 0.5% 30 ML VIAL ONE (11:35)
[2021-02-07] MEDS: ONDANSETRON 4 MG/2 ML VIAL IV PRN (19:02)
[2021-02-07] MEDS: ASPIRIN EC 81 MG TABLET PO SCH (21:13)
[2021-02-07 22:30] LABS: Bilirubin,Urine Negative (Negative); Blood, Urine Moderate mg/dL (Negative); Glucose,Urine (UA) 50 mg/dL (Negative); Ketones,Urine Negative (Negative); Nitrite,Urine Negative (Negative); Protein,Urine Negative; RBC,Urine 2 /HPF (0-4); Squamous Epithelial Cell,Urine Occasional /HPF (0-10); Urine Appearance CLEAR (Clear); Urine Color Yellow (Yellow); Urine Specific Gravity 1.014 (1.001-1.035); Urine Urobilinogen < 2.0 EU/DL (0.2-1.0)
[2021-02-08] MEDS: SODIUM CHLORIDE 0.9% 1,000 ML IV SCH ×2 (08:46→16:13)
[2021-02-08] MEDS: DOCUSATE SODIUM 100 MG CAPSULE PO SCH ×2 (08:50→21:35)
[2021-02-08] MEDS: carvediloL 3.125 MG TABLET PO SCH ×2 (08:51→16:13)
[2021-02-08] MEDS: INSULIN NPH/REGULAR 70/30 100 UNIT/ML SUBCUT SCH ×2 (08:56→16:12)
[2021-02-08] MEDS: ASCORBIC ACID 500 MG TABLET PO SCH (09:25)
[2021-02-08] MEDS: PANTOPRAZOLE 40 MG TABLET PO SCH (09:25)
[2021-02-08] MEDS: ISOSORBIDE MONONITRATE 30 MG TABLET PO SCH (09:25)
[2021-02-08] MEDS: MONTELUKAST 10 MG TABLET PO SCH (09:25)
[2021-02-08] MEDS: CHOLECALCIFEROL 1,000 UNIT TABLET PO SCH (09:25)
[2021-02-08] MEDS: POLYETHYLENE GLYCOL POWDER 17 GM PACK PO SCH (09:25)
[2021-02-08] MEDS: BUDESONIDE/FORMOTEROL 160-4.5 INHALER 6 GM INH SCH ×2 (09:27→21:36)
[2021-02-08] MEDS: EZETIMIBE 10 MG TABLET PO SCH (09:29)
[2021-02-08 10:44] LABS: Calcium 9.1 MG/DL (8.5-10.1); Osmolality,Calculated 283.2 MOS/KG (273-304); Potassium 5.2 MMOL/L (3.5-5.1)
[2021-02-08] MEDS: ONDANSETRON 4 MG/2 ML VIAL IV PRN ×2 (19:10→23:32)
[2021-02-08] MEDS: ASPIRIN EC 81 MG TABLET PO SCH (21:36)
[2021-02-09] MEDS: SODIUM CHLORIDE 0.9% 1,000 ML IV SCH (05:38)
[2021-02-09 05:42] LABS: Basophils # 0.1 10*3/uL (0.0-0.2); Eosinophils # 0.5 10*3/uL (0.0-0.87); Eosinophils % 5.6 % (0.00-10.9); Hematocrit 34.4 VOL% (42.0-52.0); Hemoglobin 11.4 GM/DL (14.0-18.0); Immature Granulocytes % 0.7 %; Immature Granulocytes Absolute 0.06 #; Lymphocytes # 1.4 10*3/uL (1.4-4.0); Lymphocytes % 17.3 % (21.2-54.2); Mean Corpuscular HGB Conc 33.1 GM/DL (32-36); Mean Corpuscular Volume 90.5 FL (87-102); Mean Platelet Volume 10.5 FL (9.6-12.0); Monocytes % 10.6 % (1.7-12.7); Neutrophils % 64.8 % (38.7-73.9); Platelet Count 339 T/CUMM (130-400); Red Cell Distribution Width 14.7 % (9.3-17.3); White Blood Count 8.3 T/CUMM (4-12)
[2021-02-09 06:09] LABS: Calcium 8.7 MG/DL (8.5-10.1); Osmolality,Calculated 282.4 MOS/KG (273-304); Potassium 4.9 MMOL/L (3.5-5.1)
[2021-02-09] MEDS: ISOSORBIDE MONONITRATE 30 MG TABLET PO SCH (08:43)
[2021-02-09] MEDS: EZETIMIBE 10 MG TABLET PO SCH (08:43)
[2021-02-09] MEDS: MONTELUKAST 10 MG TABLET PO SCH (08:43)
[2021-02-09] MEDS: PANTOPRAZOLE 40 MG TABLET PO SCH (08:43)
[2021-02-09] MEDS: carvediloL 3.125 MG TABLET PO SCH (08:43)
[2021-02-09] MEDS: CHOLECALCIFEROL 1,000 UNIT TABLET PO SCH (08:43)
[2021-02-09] MEDS: DOCUSATE SODIUM 100 MG CAPSULE PO SCH (08:44)
[2021-02-09] MEDS: ASCORBIC ACID 500 MG TABLET PO SCH (08:44)
[2021-02-09] MEDS: POLYETHYLENE GLYCOL POWDER 17 GM PACK PO SCH (08:44)
[2021-02-09] MEDS: INSULIN NPH/REGULAR 70/30 100 UNIT/ML SUBCUT SCH (08:45)
[2021-02-09] MEDS: BUDESONIDE/FORMOTEROL 160-4.5 INHALER 6 GM INH SCH (08:51)
[2021-02-09 11:44] VITALS: BP 102/61
== END 2021-02-09 12:43 | disposition home or self-care (01) | DRG 552 ==
LOC: N.3E 08:58 → N.ED 08:58 → N.3E 18:30 → SUATTDRO 02-07 11:50
PROVIDERS: ADMIT Internal Medicine; ATTEND Internal Medicine